=== PATIENT | female | born 1950 | race Caucasian/White ===

== ENCOUNTER 2023-10-17 11:28 | Outpatient (CLI) | payer MEDICARE, SELFPAY ==
[2023-10-17 11:58] LABS: Basophils Absolute Auto 0.1 K/mm3 (0.0-0.1); Basophils Percent Auto 0.7 % (0.2-1.2); Eosinophils Absolute Auto 0.2 K/mm3 (0-0.3); Eosinophils Percent Auto 3.4 % (0-4.4); Hematocrit 40.7 % (37.0-47.0); Hemoglobin 13.3 g/dL (12.0-15.0); Immature Granulocyte Absolute 0.02 K/mm3 (0.00-0.031); Immature Granulocyte Percent A 0.3 % (0-0.5); Lymphocytes Absolute Auto 1.09 K/mm3 (0.9-3.2); Lymphocytes Percent Auto 16.3 % (18.3-44.2); Mean Corpuscular HGB Conc 32.7 g/dl (32-36); Mean Corpuscular Hemoglobin 29.1 pg (26-34); Mean Corpuscular Volume 89.1 fl (80-100); Mean Platelet Volume 8.8 fl (7.4-10.4); Monocytes Absolute Auto 0.6 K/mm3 (0.1-0.6); Monocytes Percent Auto 9.6 % (2.6-8.5); Neutrophils Absolute Auto 4.7 K/mm3 (1.3-6.7); Neutrophils Percent Auto 69.7 % (45.5-73.1); Platelet Count Result 321 k/mm3 (150-375); Red Blood Count 4.57 M/mm3 (4.2-5.4); Red Cell Distribution Width 13.3 % (11.5-14.5); White Blood Count 6.7 K/mm3 (4.5-10.0)
[2023-10-19 03:49] LABS: CA 15-3 20 U/mL (<32)
== END 2023-10-17 11:29 | disposition home or self-care (01) ==
PROVIDERS: PCP Family Medicine Sports Medicine; Visit Provider Internal Medicine Hematology & Oncology
DX: C50.912 Malignant neoplasm of unspecified site of left female breast (principal)
CPT/HCPCS: 36415; 85025; 86300

== ENCOUNTER 2024-04-23 10:05 | Outpatient (CLI) | payer MEDICARE, SELFPAY ==
[2024-04-23 10:28] LABS: Basophils Absolute Auto 0.1 K/mm3 (0.0-0.1); Basophils Percent Auto 0.8 % (0.2-1.2); Eosinophils Absolute Auto 0.2 K/mm3 (0-0.3); Eosinophils Percent Auto 2.7 % (0-4.4); Hematocrit 36.6 % (37.0-47.0); Hemoglobin 11.9 g/dL (12.0-15.0); Immature Granulocyte Absolute 0.03 K/mm3 (0.00-0.031); Immature Granulocyte Percent A 0.4 % (0-0.5); Lymphocytes Absolute Auto 0.98 K/mm3 (0.9-3.2); Lymphocytes Percent Auto 12.7 % (18.3-44.2); Mean Corpuscular HGB Conc 32.5 g/dl (32-36); Mean Corpuscular Hemoglobin 30.1 pg (26-34); Mean Corpuscular Volume 92.7 fl (80-100); Mean Platelet Volume 8.8 fl (7.4-10.4); Monocytes Absolute Auto 0.7 K/mm3 (0.1-0.6); Monocytes Percent Auto 8.6 % (2.6-8.5); Neutrophils Absolute Auto 5.8 K/mm3 (1.3-6.7); Neutrophils Percent Auto 74.8 % (45.5-73.1); Platelet Count Result 266 k/mm3 (150-375); Red Blood Count 3.95 M/mm3 (4.2-5.4); Red Cell Distribution Width 13.8 % (11.5-14.5); White Blood Count 7.7 K/mm3 (4.5-10.0)
[2024-04-24 11:37] LABS: CA 15-3 16 U/mL (<32)
== END 2024-04-23 10:06 | disposition home or self-care (01) ==
PROVIDERS: PCP Family Medicine Sports Medicine; Visit Provider Internal Medicine Hematology & Oncology
DX: C50.912 Malignant neoplasm of unspecified site of left female breast (principal)
CPT/HCPCS: 36415; 85025; 86300

== ENCOUNTER 2024-10-21 14:30 | Outpatient (CLI) | payer MEDICARE, SELFPAY ==
--- OUTSIDE RECORDS SUMMARY | 2024-10-21 14:33 | XMS_ITS | Clinical Summary ---
Author Organization [facility] [place] Address [address] [place] [address] Phone Care Team Providers Care Rest Room Maid Name Role Phone Devan Mckeon MD Primary Care Provider [phone] Allergies Active Allergy Reactions Criticality Noted Date Comments Adhesive Tape-Silicones Itching Low 02/03/2016 Morphine Itching,Swelling High 04/10/2016 Sulfa (Sulfonamide Antibiotics) Swelling Low 09/0 06/2015 Tapentadol Itching,Rash Medium 02/03/2016 Medications lisinopril (PRINIVIL) 20 mg tablet 6 Active omeprazole (PriLOSEC) 40 mg Capsule, Delayed Release(E.C.) Take 40 mg by mouth daily. Active metoprolol succinate (TOPROL XL) 50 mg Extended Release 24 hour tablet TAKE 1 TABLET BY MOUTH ONCE DAILY 1 9 Active ergocalciferol (Vitamin D2) 50,000 unit capsuleIndications :Malignant neoplasm of overlapping sites of both breasts in female, estrogen receptor positive (CMS/HCC),Use of aromatase inhibitors,Vitamin D insufficiency Take 1 Capsule (50,000 Units) by mouth every 7 days. 12 Capsule 4 0 Active multivitamin (DAILY-CLOVIS) tabletIndications: Malignant neoplasm of overlapping sites of both breasts in female, estrogen receptor positive (CMS/HCC) Take 1 Tablet by mouth daily. 1 0 Active L. gasseri-B. bifidum-B longum (Smappo) 1.5 billion cell Capsule Take 1 Capsule by mouth. 6 Active amLODIPine (NORVASC) 10 mg tabletIndications: Benign essential HTN Take 1 tablet by mouth once daily 90 Tablet 1 Active hydrALAZINE (APRESOLINE) 50 mg tablet Take 50 mg by mouth 3 times daily. 2 Active meloxicam (MOBIC) 7.5 mg tablet Take 7.5 mg by mouth 2 times daily. 2 Active pantoprazole (PROTONIX) 40 mg Tablet, Delayed Release (E.C.) Take 40 mg by mouth daily. 2 Active levothyroxine 50 mcg tablet Take 50 mcg by mouth daily. 3 Active exemestane (AROMASIN) 25 mg tabletIndications: Use of aromatase inhibitors,Post-me nopausal,Recurrent breast cancer, left (CMS/HCC) TAKE 1 TABLET BY MOUTH ONCE DAILY AFTER BREAKFAST 90 Tablet 2 4 Active aspirin (WANDA CHEWABLE) 81 mg Tablet, Chewable Take 81 mg by mouth 2 times daily. 4 Active atorvastatin (LIPITOR) 20 mg tablet Take 20 mg by mouth daily. 3 Active gabapentin (NEURONTIN) 300 mg capsule Take 300 mg by mouth 3 times daily. 4 Active ondansetron (ZOFRAN) 4 mg Tablet take 1 tablet by mouth every 8 hours as needed for nausea Active zolpidem (AMBIEN) 5 mg tablet Take 5 mg by mouth nightly as needed. Active Active Problems Patient Care Coordination No te Formatting of this note migh t be different from the original. 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 2021 Bilateral malignant neoplasm of overlapping sites of breast in female 02/09/2016 Overview (10/19/2016): RIGHT, UOQ Stage: Clinical T1 N0; pT1a N0 Date of diagnosis: 02/03/16 Diagnosis: right 0.1 cm grade I IDC 0/2 LN ER(+) ID(+) HER2 (-) Ki-67 - 10.9% LEFT, UIQ Stage: Clinical T1 N0; pT2 N0 Date of diagnosis: Diagnosis: left 2.2 cm Grade I IDC 0/2 LN ER(+) ID(+) HER2 (-) Ki-67 - 15.8% Oncotype-Dx score: 3 Medical oncologist- Raj Endocrine: 2.5mg Letrozole BREAST CANCER TREATMENT SUMMARY AND SURVIVORSHIP PLAN Patient name: Aline Grant Patient Patient : 1950 CARE TEAM Medical oncologist: Dr Neeraj Anthony Surgeon: Dr Maya Cornejo Primary care physician: Dr Devan Mckeon SALES SERVICE COORDINATOR: Dr Gunjan Rodriguez TREATMENT SUMMARY Diagnosis date: 02/03/2016 Cancer type/location/histology subtype: 01/03/2016: A bilateral screening mammogram showed an asymmetry in the posterior left breast. 01/20/16: A diagnostic mammogram also showed a suspicious mass with ill-defined margins in the upper, posterior left breast. An additional mass in the outer, posterior right breast was also seen. 02/03/2016: A left breast ultrasound (US) was performed confirming the ill-defined mass, however no abnormal left axillary lymph nodes. A right breast US also confirmed An ill-defined 4 mm mass at the 11:00 position of the right breast. 02/03/16: A bilateral US- guided core biopsy was performed revealing an invasive ductal carcinoma (IDC) in the right and left breast Right Breast Mass: Left Breast Mass: Estrogen: POSITIVE-01/09 Estrogen: POSITIVE-01/09 Progesterone: POSITIVE-01/09 Progesterone: POSITIVE-01/09 Cju5Cuw: NEGATIVE Svo4Vtu: NEGATIVE Ki-67: 10.9% Ki-67: 15.8% 02/14/16: MRI demonstrated no additional abnormality or enlarged lymph nodes visualized. Surgery: [x] Yes [] No Surgery date: 04/10/16 Surgical procedures/location/findings: A bilateral mastectomy without reconstruction was performed by Dr Maya Cornejo. The left mastectomy showed invasive ductal carcinoma measuring 2.2 cm. The right mastectomy showed invasive ductal carcinoma measuring 0.4 cm. All margins were negative. Lymph nodes removed: [x] Yes [] No . 2 sampled left axillary sentinel lymph nodes were negative. TNM: Final pathologic stage [id number] -. 2 sampled right axillary lymph nodes were negative for malignancy. TNM: Final pathologic stage TIN0M0 *T1 (includes T1a, T1b, and T1c): Tumor is 2 cm (3/4 of an inch) or less across Oncotype results if performed: Oncotype-Dx score: 3 -Low risk of recurrence. -No chemo indicated Oncotype DX test results assign a Recurrence Score -- a number between 0 and 100 -- to the early-stage breast cancer or DCIS. You and your doctor can use the following ranges to interpret your results for early-stage invasive cancer: Recurrence Score lower than 18: The cancer has a low risk of recurrence. The benefit of chemotherapy is likely to be small and will not outweigh the risks of side effects. Recurrence Score of 18 up to and including 30: The cancer has an intermediate risk of recurrence. It s unclear whether the benefits of chemotherapy outweigh the risks of side effects. Recurrence Score greater than or equal to 31: The cancer has a high risk of recurrence, and the benefits of chemotherapy are likely to be greater than the risks of side effects. Need for ongoing (adjuvant) treatment for cancer: Yes [x] No[] Additional treatment name: 2.5mg Letrozole (Femera) - take one tablet by mouth daily Plan duration: 5 years Possible side effects: Arthralgias [x] Hot flashes/night sweats [x] Increased bone loss [x] vaginal dryness [x] slight increased risk of DVT/Blood clot [] Slight increased risk of uterine cancer [] increased cholesterol [x] Bone health- Vitamin D 1000 units a day, calcium rich diet (milk, cheese, yogurt, leafy greens), if lactose intolerant, recommend Calcium 600mg daily, weight bearing exercises such as walking or aerobics encouraged. Bone density exams every two years. Magnesium for hot flashes- 500mg twice a day, reduce caffeine intake, exercise regularly, cotton clothing and bed linens, sleep with fan in room Vaginal dryness- can try over the counter products such as [place] or Replens. Daily application of coconut oil or olive oil. Try and avoid estrogen based vaginal creams such as Estrace. For lack of libido- physical exercise recommended. Can refer to [facility] for counseling and possible acupuncture. SCHEDULE OF CLINIC VISITS, CANCER SURVEILLANCE AND OTHER RECOMMENDED RELATED TESTS MEDICAL ONCOLOGIST -Every 3-4 mos for the first 3 years -Every 6-12 mos years 4 and 5 -Then yearly. *Physical exam/lab work every 3-6 months the first 3 years and then every 6 months year 4/5 and then yearly. Mammogram yearly. A baseline bone density study should be performed on all postmenopausal women prior to starting Arimidex/Femara/or Aromasin. It should be repeated every 1-to 2 years as directed by your physician. Other testing as indicated. SURGEON -Every 6 mos for the first year and then yearly. *Physical exam and other tests as indicated on each visit PRIMARY CARE PHYSICIAN -Continue your yearly visit *Physical exam and other tests as indicated on each visit [employer] ADVISOR -Continue your yearly visit. *Physical exam and other tests (Pap test) as indicated on each visit. Possible late and/or usp affects that someone with this type of cancer and treatment may experience: [] Neuropathy [x] Lymphedema [x] Fatigue [x] Osteoporosis [x] Menopausal symptoms [] Lung Disease [] Breast Pain [] Sexual dysfunction [] Heart Disease [] Leukemia Cancer survivors may experience issues with the areas listed below. If you have any concerns in these or other areas please speak with your doctors or nurses to find out how you can get help with them. [] Emotional and mental health [] Physical functioning [] Memory or concentration loss [] Fatigue [] Insurance issues [] Parenting [] Spiritual issues [] Weight changes [] School/work [] Fertility [] Stopping smoking [] Financial advice or assistance [] Sexual functioning [] Other A number of lifestyle/behaviors can affect one's ongoing health, including the risk for the cancer coming back or developing another cancer. Discuss these recommendations with your doctor and nurses. [] Tobacco use/cessation [] Alcohol use [] Weight management (loss/gain) [] Diet [] Calcium and vitamin D [] Regular daily weight bearing exercise [] Sunscreen use [] Vaccines [] Lung cancer screening [] Routine dental care [] Breast cancer screening [] Breast self exam [] Well woman exam [] Colonoscopy [] Monitoring of blood pressure, cholesterol, and blood glucose CALL YOUR DOCTOR RECOMMENDATIONS Call for any breast changes, new lumps or areas of concern, swelling to arm where lymph nodes were removed, new pain that persists despite OTC medications, or any problems with your endocrine therapy. PLAN Lifestyle modifications could have a modest impact on risk reduction as well. Recommend a healthy diet including low fat, high fiber foods, low sodium and low cholesterol foods. Mediterranean diet and anti-inflammatory diet recommended and info provided. Recommend an exercise regimen of approximately 5-6 days a week and maintaining healthy weight. Goal is to achieve 150 minutes of exercise per week. We spent time discussing that those changes could result in weight loss which is preventive and also good for overall health. REFERRALS [x] [facility] [] [facility] [] Other (Specify): ADDITIONAL RESOURCES Patients may have many questions and concerns after their cancer treatment ends. A list of local resources as provided below to assist you. [facility] cancer information center: [place] [employer] Society (ACS): www.acs.org National Cancer [place] (NCI): www.cancer.gov [place] Society of clinical oncology (ASCO): www.cancer.net K[employer]: www.Or[employer] Innovations.org [employer]: hovelstay.Systems Integration Radiation therapy: www.rtanswers.org Patient signature: Akin M.Angel/MOLD CUTTING MACHINE OPERATOR/RN signature: Eden Brooke RN BSN Date delivered on: 08/18/2016 Surgeon: Clemente Surgery: 04/10/16 bilateral TM/SLN Medical Oncologist: Chemotherapy: Radiation: none Hormonal therapy: Breast mass, left 02/03/2016 Overview (02/03/2016): For core biopsy Resolved Problems Problem Noted Date Diagnosed Date Resolved Date Abnormal mammogram 01/24/2016 2 Encounters Date Type Department Care Team Description 08/07/2024 1:30 PM HANDKERCHIEF PRESSER Office Visit [facility] [address] [place] [phone] Maya Cornejo MD History of breast cancer (Primary Dx); Mass of left breast, unspecified quadrant 08/07/2024 11:11 AM HANDKERCHIEF PRESSER - 08/07/2024 11:59 PM HANDKERCHIEF PRESSER Hospital Encounter [facility] [address] [place] [phone] Maya Cornejo MD Discharge Disposition: Home or Self Care 07/31/2024 Orders Only [facility] [place] [address] [place] [phone] Maya Cornejo MD Mass of left breast, unspecified quadrant (Primary Dx); Disorder of breast, unspecified from Last 3 Months Immunizations Immunization Administration Dates Next Due Influenza Seasonal Unspecified Formulation IM Family History Medical History Relation Name Comments Lung Cancer Father smoker Breast Cancer Paternal Aunt 30-40 Colon Cancer Paternal Aunt Breast Cancer Paternal Grandmother deceas ed Ovarian Cancer Neg Hx Uterine Cancer Neg Hx Relation Name Status Comments Father Paternal Aunt Paternal Grandmother Social History Tobacco Use Types Packs/Day Years Used Date Smoking Tobacco: Never Smokeless Tobacco: Never Alcohol Use Standard Drinks/Week Comments No 0 (1 standard drink = 0.6 oz pur e alcohol) Feeling Safe Answer Date Recorded Within the last year, have y ou been afraid of your partner or ex-partner? No 10/25/2023 Emotionally Abused Not on file 10/25/2023 Within the last year, have y ou been kicked, hit, slapped, or otherwise physically hurt by your partner or ex-partner? No 10/25/2023 Sexually Abused Not on file 10/25/2023 Feeling Safe Answer Date Recorded Do you worry about feeling s afe and happy with the people in your life? No 08/07/2024 Comments No Sex and Gender Information Value Date Recorded Sex Assigned at Not on file Legal Sex Female 2:28 PM CDT Gender Identity Not on file Sexual Orientation Not on file Last Filed Vital Signs Vital Sign Reading Time Taken Comments Blood Pressure 124/69 08/07/2024 1:57 PM HANDKERCHIEF PRESSER Pulse 67 08/07/2024 1:57 PM HANDKERCHIEF PRESSER Temperature 36.7 C (98 F) 04/30/2024 9:14 AM HANDKERCHIEF PRESSER Respiratory Rate 17 04/30/2024 9:14 AM HANDKERCHIEF PRESSER Oxygen Saturation 95% 04/30/2024 9:14 AM HANDKERCHIEF PRESSER Inhaled Oxygen Concentration - - Weight 91.6 kg (202 lb) 08/07/2024 1:57 PM HANDKERCHIEF PRESSER Height 166.4 cm (5' 5.5 ) 08/07/2024 1:57 PM HANDKERCHIEF PRESSER Body Mass Index 33.1 08/07/2024 1:57 PM HANDKERCHIEF PRESSER Plan of Treatment Upcoming Encounters Date Type Department Care Team (Late st Contact Info) Description 10/29/2024 11:30 AM CDT Office Visit [facility] - [place] [address] [facility] [address] [place] [address] Neeraj Justice MD [address] [facility] [address] [place] [address] Health Maintenance Due Date Last Done Comments DTAP/TDAP/TD VACCINES (1 - Tdap) 1970 FIT-DNA Q 3 years 1996 FIT/FOBT Q 1 year 1996 Flex Sig/CT Colonography Q 5 years 1996 ZOSTER VACCINE (1 of 2) 2001 COVID-19 Vaccine ( - 2023-2 5 season) 2024 05/05/2021, 08/06/2020, 07/09/2020 RSV VACCINE (60+ or ) (1 - 1-dose 75+ series) 2026 OSTEOPOROSIS SCREENING 10/25/2027 3, 10/24/2022, 08/18/2016 COLORECTAL SCREENING 11/11/2030 11/11/2020 Colorectal Cancer Screening 11/11/2030 INFLUENZA VACCINE Completed 02/12/2024, , 03/20/2022, Additional history exists PNEUMOCOCCAL VACCINE 50+ YEARS Completed 02/12/2024 , 05/31/2020 Procedures Procedure Name Priority Date/Time Associated Diagnosis Comments MAMMO BREAST US LEFT LTD Routine 08/07/2024 12:17 PM HANDKERCHIEF PRESSER Mass of left breast, unspecified quadrant XR DEXA BONE DENSITY AXIAL 1 OR MORE SITES Routine 10/24/2022 9:59 AM CDT Use of aromatase inhibitors Post-menopausal Screening for osteoporosis from Last 3 Months or Most Recently Relevant to Health Maintenance Results * MAMMO BREAST US LEFT LTD (08/07/2024 12:17 PM HANDKERCHIEF PRESSER) Anatomical Region Laterality Modality Left Ultrasound 08/07/2024 12:1 7 PM HANDKERCHIEF PRESSER Impressions 08/07/2024 12:22 PM HANDKERCHIEF PRESSER IMPRESSION: Unremarkable focused ultrasound BI-RADS 1: Negative Routine follow-up. INCIDENTAL FINDINGS: None. DICTATION LOCATION: Location [address] [place] [address] 08/07/2024 12:22 PM HANDKERCHIEF PRESSER Focused ultrasound left breast INDICATION: Possible lump. Focused ultrasound was made through the area of clinical concern. No suspicious solid or cystic mass is identified. Axillary nodes are seen that have normal appearance. us Maya Cornejo MD MAMMO ORDERABLES Final Result * XR DEXA BONE DENSITY AXIAL 1 OR MORE SITES (10/24/2022 9:59 AM CDT) Anatomical Region Laterality Modality Computed Radiogr aphy 10/24/2022 10:0 0 AM CDT Impressions 10/24/2022 10:12 AM CDT IMPRESSION: This is a summary page. Please refer to the complete detailed report found in the Imaging Section of the [facility] EMR. Osteopenia. Lumbar Spine: t-Score: -1.3 Left Femoral Neck: t-Score: -1.1 Left Total Femur: t-Score: -1.1 Right Femoral Neck: t-Score: -0.9 Right Total Femur: t-Score: -1.0 Statistical change: Significant decrease of 5.3 % in Lumbar spine BMD since 2017. FRAX FRACTURE RISK ASSESSMENT: (Only valid Between 40-89 Years Of Age) Risk factors: None. 10 Year Probability Of Fracture Major Osteoporotic: 8.4 % Hip: 0.9 % Comparison population: [place], Race: White A major osteoporotic fracture is defined as a fracture of the spine, forearm, hip or shoulder. Definitions: Normal: T-score above -1.0 Osteopenia T-score less than -1.0 and above -2.5 Osteoporosis: T-score <= -2.5 Follow-up Recommendations: Patients without high risk factors for osteoporosis T-score -1.0 to -1.5 - Consider repeat BMD in 5-10 years T-score -1.5 to - 2.0 - Consider repeat BMD in 3-5 years T-score -2.0 to - 2.5 - Consider repeat BMD every 2 years Patients on treatment for osteoporosis 1-2 years after initiation of treatment and every 2 years thereafter [address] Dr[address] Dallas Zimmerman MD DICTATION LOCATION: 10/24/2022 10:12 AM CDT EXAMINATION: BONE DENSITY STUDY (DXA) DATE: 10/24/2022 9:59 AM HISTORY: 72 years Female. Postmenopausal. Use of aromatase inhibitors. PROCEDURE: Planar images of the lumbar spine and hip(s) using a [employer] DEXA scanner for bone mineral density determination (BMD). Prior bone density: 08/18/2016 FINDINGS: Lumbar Spine (L1-L2): t-Score: -1.3 1.007 g/sq cm Prior: 1.063 g/sq cm Left Femoral Neck: t-Score: -1.1 0.891 g/sq cm Prior: 0.896 g/sq cm Left Total Femur: t-Score: -1.1 Right Femoral Neck: t-Score: -0.9 0.910 g/sq cm Prior: 0.922 g/sq cm Right Total Femur: t-Score: -1.0 INCIDENTAL FINDINGS: L3-L4 excluded bcause of statistical variation.. Procedure Note Dallas Zimmerman MD - 10/24/2022 EXAMINATION: BONE DENSITY STUDY (DXA) DATE: 10/24/2022 9:59 AM HISTORY: 72 years Female. Postmenopausal. Use of aromatase inhibitors. PROCEDURE: Planar images of the lumbar spine and hip(s) using a [employer] DEXA scanner for bone mineral density determination (BMD). Prior bone density: 08/18/2016 FINDINGS: Lumbar Spine (L1-L2): t-Score: -1.3 1.007 g/sq cm Prior: 1.063 g/sq cm Left Femoral Neck: t-Score: -1.1 0.891 g/sq cm Prior: 0.896 g/sq cm Left Total Femur: t-Score: -1.1 Right Femoral Neck: t-Score: -0.9 0.910 g/sq cm Prior: 0.922 g/sq cm Right Total Femur: t-Score: -1.0 INCIDENTAL FINDINGS: L3-L4 excluded bcause of statistical variation.. IMPRESSION: This is a summary page. Please refer to the complete detailed report found in the Imaging Section of the [facility] EMR. Osteopenia. Lumbar Spine: t-Score: -1.3 Left Femoral Neck: t-Score: -1.1 Left Total Femur: t-Score: -1.1 Right Femoral Neck: t-Score: -0.9 Right Total Femur: t-Score: -1.0 Statistical change: Significant decrease of 5.3 % in Lumbar spine BMD since 2017. FRAX FRACTURE RISK ASSESSMENT: (Only valid Between 40-89 Years Of Age) Risk factors: None. 10 Year Probability Of Fracture Major Osteoporotic: 8.4 % Hip: 0.9 % Comparison population: [place], Race: White A major osteoporotic fracture is defined as a fracture of the spine, forearm, hip or shoulder. Definitions: Normal: T-score above -1.0 Osteopenia T-score less than -1.0 and above -2.5 Osteoporosis: T-score <= -2.5 Follow-up Recommendations: Patients without high risk factors for osteoporosis T-score -1.0 to -1.5 - Consider repeat BMD in 5-10 years T-score -1.5 to - 2.0 - Consider repeat BMD in 3-5 years T-score -2.0 to - 2.5 - Consider repeat BMD every 2 years Patients on treatment for osteoporosis 1-2 years after initiation of treatment and every 2 years thereafter D[address] by Dr. Dallas Zimmerman MD DICTATION LOCATION: 1 Neeraj Carrington Anthony MD DIAGNOSTIC IMAGING ORDERABLES Final Result from Last 3 Months or Most Recently Relevant to Health Maintenance [place] [address] [place] [id number] Advance Directives For more information, please contact: [phone] * Full Code (Latest Code Status on File) Date Activated Date Inactivated Comments 04/10/2016 1:11 PM 04/11/2016 12:59 PM * Full Code Date Activated Date Inactivated Comments 04/10/2016 7:08 AM 04/10/2016 1:11 PM Care Teams Rest Room Maid Relationship Specialty [place] [address] [address] [place] [phone] PCP - General Family Practice 02/23/16
--- OUTSIDE RECORDS SUMMARY | 2024-10-21 14:33 | XMS_ITS ---
Author Organization [facility] Address [address] [place] [address] Care Team Providers Care Furnace Helper Name Role Phone JanyHawa Edward TABLE GAMES SHIFT MANAGER Primary Care Provider Active Problems Problem Noted Date Diagnosed Date Gastroesophageal reflux disease without esophagi tis 08/15/2024 Diarrhea 08/05/2024 Assessment & Plan (08/05/2024 1:23 PM CLEANING TEAM MEMBER): Chronic diarrhea after meals, 2-3 loose to watery bowel movements per day. In between these episodes has constipation. Differential includes infectious diarrhea versus IBD versus IBS versus overflow diarrhea versus bile salt diarrhea versus pancreatic insufficiency. -We will order labs - CBC, CMP, ESR, CRP, celiac disease panel -We will order stool studies - C diff, stool culture, fecal lactoferrin, Cryptosporidium Giardia, fecal elastase -Schedule colonoscopy -The risks (risks of bleeding, infection, perforation requiring surgery, missed polyps/cancer, dental injury, aspiration pneumonia, anesthesia complications such as drug reaction and cardiopulmonary complications including rare chance of ), benefits, and alternatives of the planned procedure were explained to the patient who understands and consents to having procedure done. Essential hypertension 10/29/2022 Acute duodenitis 10/29/2022 GERD without esophagitis 10/29/2022 History of pancreatitis 10/29/2022 Abdominal pain 09/13/2021 Assessment & Plan (08/05/2024 1:23 PM CLEANING TEAM MEMBER): Chronic GERD, not well-controlled with omeprazole 40 mg p.o. daily which he has been taking for years, continues to have belching after meals. -Continue omeprazole 40 mg p.o. daily -Start famotidine 40 mg p.o. q.h.s. -RECOMMENDATIONS given include: anti-reflux maneuvers, Avoid acidic foods like oranges and tomatoes., avoidance of spicy foods, avoid eating 3-4 hours before bed, elevation of the head of the bed, and weight loss -Schedule EGD -The risks (risks of bleeding, infection, perforation requiring surgery, missed polyps/cancer, dental injury, aspiration pneumonia, anesthesia complications such as drug reaction and cardiopulmonary complications including rare chance of ), benefits, and alternatives of the planned procedure were explained to the patient who understands and consents to having procedure done. Acute pancreatitis 09/09/2021 Overview (09/13/2021): Added automatically from request for surgery [id number] Assessment & Plan (08/05/2024 1:20 PM CLEANING TEAM MEMBER): Has had a cholecystectomy. Patient has had recurrent pancreatitis with a previous ERCP in 2012 and 2016 with a pancreatic sphincterotomy. 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 Patient also had recurrent pancreatitis October 2022. No pancreatitis since then. -We will order MRI of the pancreas -We will order labs - IgG4 -Advised patient to go to the ER for any severe abdominal pain, nausea, or vomiting Bilateral malignant neoplasm of overlapping sites of breast in female 02/09/2016 10/29/2022 Overview (10/29/2022): RIGHT, UOQ Stage: Clinical T1 N0; pT1a N0 Date of diagnosis: 02/03/16 Diagnosis: right 0.1 cm grade I IDC 0/2 LN ER(+) CT(+) HER2 (-) Ki-67 - 10.9% LEFT, UIQ Stage: Clinical T1 N0; pT2 N0 Date of diagnosis: Diagnosis: left 2.2 cm Grade I IDC 0/2 LN ER(+) CT(+) HER2 (-) Ki-67 - 15.8% Oncotype-Dx score: 3 Medical oncologist- Raj Endocrine: 2.5mg Letrozole BREAST CANCER TREATMENT SUMMARY AND SURVIVORSHIP PLAN Patient name: Aline Grant Patient Patient : 1950 CARE TEAM Medical oncologist: Dr Neeraj Anthony Surgeon: Dr Maya Cornejo Primary care physician: Dr Devan Mckeon HEAVY DUTY PRESS OPERATOR: Dr Gunjan Rodriguez TREATMENT SUMMARY Diagnosis date: [...] Right Breast Mass: Left Breast Mass: Estrogen: POSITIVE-8 Estrogen: POSITIVE-01/09 Progesterone: POSITIVE-01/09 Progesterone: POSITIVE-01/09 [id number]: NEGATIVE [id number]: NEGATIVE Ki-67: 10.9% Ki-67: 15.8% 02/14/16: MRI [...] other tests as indicated on each visit NUCLEAR LOGGING ENGINEER -Continue your yearly visit. *Physical exam and other tests (Pap test) as indicated on each visit. Possible late and/or intermission coordinator affects that someone with this type of [...] also good for overall health. REFERRALS [x] [facility] [] [facility] [] Other (Specify): ADDITIONAL RESOURCES Patients may have many questions and concerns after their cancer treatment ends. A list of local resources as provided below to assist you. [facility] cancer information [place]: [place] Cancer Society (ACS): www.acs.org National Cancer [place] (NCI): www.cancer.gov [place] Society of clinical oncology (ASCO): www.cancer.net Komen: www.Molplex.org Livestrong: [employer].ClearDATA Radiation therapy: www.rtanswers.org Patient signature: Akin M.DLokesh/TABLE GAMES SHIFT MANAGER/RN signature: Eden Brooke RN BSN Date delivered on: 08/18/2016 Surgeon: Clemente Surgery: 04/10/16 bilateral TM/SLN Medical Oncologist: Chemotherapy: Radiation: none Hormonal therapy: Current Treatment and Therapy Plans No current plan information found. Past Treatment and Therapy Plans No past plan information found. Lifetime Dose Tracking * Chemical Lifetime Dose Automatic Entry Manual Entr y Fluoro Time 8.6 minutes 8.6 minutes 0 minutes Air kerma at the reference point (Ka,r) 332 mGy 3 32 mGy 0 mGy
--- OUTSIDE RECORDS SUMMARY | 2024-10-21 14:33 | XMS_ITS | Encounter Summary ---
Author Organization [facility] Healthcare Address [address] [place] [address] Care Team Providers Care Geosciences Faculty Member Name Role Phone Devan Mckeon MD Primary Care Provider + Hawa Carmichael NP Primary Care Provider Encounter Details Date Type Department Care Team (Latest Contact Info) Description 08/20/2024 Results Follow-Up [facility] Medical Group Gastroenterology at [address] [place] [address] Kavon Lynn MD [address] [place] [id number] Surgical pathology Social History Tobacco Use Types Packs/Day Years Used Date Smoking Tobacco: Never Smokeless Tobacco: Never Social Connection and Isolation Panel [NHANES] A nswer Date Recorded In a typical week, how many times do you talk on the phone with family, friends, or neighbors? Once a week 09/13/2021 How often do you get together with friends or re latives? Never 09/13/2021 How often do you attend religion or lutheran serv ices? Never 09/13/2021 Do you belong to any clubs o r organizations such as religion groups, unions, fraternal or athletic groups, or school groups? No 09/13/2021 How often do you attend meet ings of the clubs or organizations you belong to? Never 09/13/2021 Are you , , di vorced, , never , or living with a partner? 09/13/2021 AUDIT-C Answer Date Recorded Q1: How often do you have a drink containing alcohol? Never 08/19/2024 Q2: How many drinks containi ng alcohol do you have on a typical day when you are drinking? Patient does not drink Q3: How often do you have si x or more drinks on one occasion? Never 08/19/2024 Overall Financial Resource Strain (CARDIA) Answe r Date Recorded How hard is it for you to pa y for the very basics like food, housing, medical care, and heating? Not hard at all 09/13/2021 PRAPARE - Transportation Answer Date Re corded In the past 12 months, has l ack of transportation kept you from medical appointments or from getting medications? No 09/02 In the past 12 months, has l ack of transportation kept you from meetings, work, or from getting things needed for daily living? No 09/13/2021 Personal Safety Answer Date Recorded Have you ever been in or are you currently in a harmful physical or emotional relationship or is someone making you feel afraid or unsafe? Denies 08/19/2024 Comments No Sex and Gender Information Value Date Recorded Sex Assigned at Not on file Legal Sex Female 2:51 AM HVAC RESIDENTIAL SERVICE TECHNICIAN Gender Identity Not on file Sexual Orientation Not on file documented as of this encounter Plan of Treatment Not on file documented as of this encounter Visit Diagnoses Not on filedocumented in this encounter Care Teams Geosciences Faculty Member Relationship Specialty Start Date End Date Devan Mckeon MD [address] [place] [address] PCP - General Family Medicine 09/09/21 08/24/24 Hawa Carmichael NP [address] [place] [address] PCP - General Family Medicine 08/25/24 documented as of this encounter
--- OUTSIDE RECORDS SUMMARY | 2024-10-21 14:33 | XMS_ITS | Encounter Summary ---
Author Organization [facility] Health Address [address] [place] [address] Care Team Providers Care Jointer Machine Operator Name Role Phone Devan Mckeon MD Primary Care Provider [phone] Hawa Carmichael APRN-[facility] Primary Care Prov ider Reason for Referral * Consultation (Routine) - Authorized Specialty Diagnoses / Procedures Referred By Contac t Referred To Contact Neurology Diagnoses Vertebral artery stenosis, unspecified laterality Nesha Monsalve MD [address] [place] [address] Phone: tel: fax: López Ryan MD [address] [place] [address] [place] [address] Phone: tel: fax: Referral ID Status Reason Start Date Expiration Date Visits Requested Visits Authorized [id number] Authorized Specialty Services Required 4 04/22/2025 6 6 R SERVICES TEAM LEADER Encounter Details Date Type Department Care Team (Late st Contact Info) Description 04/22/2024 Transcribe Orders [facility] - Centralized Scheduling [address] [place] [id number] Nesha Monsalve MD [address] [place] [address] [id number] Vertebral artery stenosis, unspecified laterality Social History Tobacco Use Types Packs/Day Years Used Date Smoking Tobacco: Never Smokeless Tobacco: Never Alcohol Use Standard Drinks/Week Comments Never 0 (1 standard drink = 0.6 oz pur e alcohol) AUDIT-C Answer Date Recorded Q1: How often do you have a drink containing alcohol? Never 06/25/2023 Q2: How many drinks containi ng alcohol do you have on a typical day when you are drinking? Patient does not drink Q3: How often do you have si x or more drinks on one occasion? Never 06/25/2023 Overall Financial Resource Strain (CARDIA) Answe r Date Recorded How hard is it for you to pa y for the very basics like food, housing, medical care, and heating? Not hard at all 06/25/2023 PHQ-2 Answer Date Recorded Patient Health Questionnaire-2 Score 0 08/13/2023 [facility] - Occupational Stress Questionnaire Answer Date Recorded Do you feel stress - tense, restless, nervous, or anxious, or unable to sleep at night because your mind is troubled all the time - these days? Not at all 06/25/2023 Hunger Vital Sign Answer Date Recorded Within the past 12 months, y ou worried that your food would run out before you got the money to buy more. Never true 06/25/19 24 Within the past 12 months, t he food you bought just didn't last and you didn't have money to get more. Never true 06/25/2023 PRAPARE - Transportation Answer Date Re corded In the past 12 months, has l ack of transportation kept you from medical appointments or from getting medications? No 06/05 In the past 12 months, has l ack of transportation kept you from meetings, work, or from getting things needed for daily living? No 06/25/2023 Housing Stability Vital Sign Answer Hroacio e Recorded In the last 12 months, was t here a time when you were not able to pay the mortgage or rent on time? No 06/25/2023 In the last 12 months, how many places have you lived? 1 06/25/2023 In the last 12 months, was t here a time when you did not have a steady place to sleep or slept in a fci (including now)? No 06/25/2023 Education Answer Date Recorded What is the highest level of school you have completed or the highest degree you have received? Associate degree: academic program 06/25/2023 Comments Unknown Sex and Gender Information Value Date Recorded Sex Assigned at Not on file Legal Sex Female 6:00 AM DONOR SERVICES TEAM LEADER Gender Identity Not on file Sexual Orientation Not on file documented as of this encounter Functional Status * Is person deaf or have serious hearing difficulty? Answer Date of Assessment Author No 06/28/2023 11:38 AM Blanche Márquez RN * Is person blind or have serious difficulty seeing? Answer Date of Assessment Author No 06/28/2023 11:38 AM Blanche Márquez RN * Does person have serious difficulty walking/climbing stairs? Answer Date of Assessment Author No 06/28/2023 11:38 AM Blanche Márquez RN * Does person have difficulty dressing/bathing? Answer Date of Assessment Author No 06/28/2023 11:38 AM Blanche Márquez RN * Does person have difficulty doing errands alone? Answer Date of Assessment Author No 06/28/2023 11:38 AM Blanche Márquez RN documented as of this encounter Mental Status * Does person have difficulty concentrating/remembering/making decisions? Answer Entry Date Author No 06/28/2023 11:38 AM Blanche Márquez RN documented in this encounter Plan of Treatment Scheduled Referrals Name Type Priority Associated Diagnoses Orde r Schedule AMB REFERRAL TO NEUROLOGY Outpatient Referral Routine Vertebral artery stenosis, unspecified laterality 1 Occurrences starting 04/22/2024 until 04/22/2025 documented as of this encounter Visit Diagnoses Diagnosis Vertebral artery stenosis, unspecified laterality- Primary documented in this encounter Care Teams Jointer Machine Operator Relationship Specialty Start Date End Date Devan Mckeon MD [address] [address] PCP - General Family Medicine 06/25/23 07/30/24 Hawa Carmichael, FINISHED HARDWARE ERECTOR-TIRE RETREADER [address] [place] [address] PCP - General Nurse Practitioner 07/31/24 documented as of this encounter
--- OUTSIDE RECORDS SUMMARY | 2024-10-21 14:33 | XMS_ITS | Clinical Summary ---
Author Organization [facility] Address [address] [place] [address] Care Team Providers Care Car Dispatcher Name Role Phone Hawa Carmichael POLITICAL THEORY PROFESSOR-OFFICE MACHINE SERVICER APPRENTICE Primary Care Prov ider Source Comments [facility]non-owned Affiliates and Associated Physician Practices is amultiple site organization consisting of ambulatory clinics and hospital sitesin [place], [place] and [place]. This disclosure is being madepursuant to the Care Everywhere program and may not contain all informatio navailable regarding this patient. Last updated 18.[facility] Allergies Active Allergy Reactions Criticality Noted Date Comments Contrast-Iodinated Agents Fo r Ct/Other Itching,Vomiting Medium 06/25/2023 Morphine Unknown High 06/25/2023 Skin Adhesives Rash Medium 06/25/2023 Sulfacetamide Itching,Vomiting Low 06/25/2023 Medications * Be aware that medications may not be up to date on this document. Alwaysverify current medications with the patient. metoprolol succinate XL 24hr (Toprol XL) 50 MG tablet 1 (one) tablet Activ e levothyroxine (Synthroid) 50 MCG tablet Take 1 (one) tablet by mouth every morning 3 Active fluticasone propionate (Flonase) 50 MCG/ACT nasal spray [place] 2 (two) sprays into the nose once daily as needed 3 Active exemestane (Aromasin) 25 MG tablet Take 1 (one) tablet by mouth once daily after breakfast Active acetaminophen (Tylenol) 500 MG tablet Take 2 (two) tablets by mouth every 8 hours Maximum allowable Acetaminophen amount = 4 Grams (4000 mg) / 24 hours. Active pantoprazole EC (Protonix) 40 MG tablet Take 1 (one) tablet by mouth once daily Active amLODIPine (Norvasc) 10 MG tablet Take 1 (one) tablet by mouth once daily Active lisinopril (Prinivil; Zestril) 40 MG tablet Take 1 (one) tablet by mouth once daily Active aspirin EC (Ecotrin) 325 MG tablet Take 1 (one) tablet by mouth once daily Active famotidine (Pepcid) 40 MG tablet Take 1 (one) tablet by mouth once daily Active hydrALAZINE (Apresoline) 50 MG tablet Take 1 (one) tablet by mouth 4 times daily Active zolpidem (Ambien) 5 MG tablet Take 1 (one) tablet by mouth nightly as needed for Insomnia Active rosuvastatin (Crestor) 5 MG tablet Take 1 (one) tablet by mouth once daily Active gabapentin (Neurontin) 300 MG capsule Take 1 (one) capsule by mouth at bedtime Active Active Problems Problem Noted Date Diagnosed Date Closed fracture of left femu r, unspecified fracture morphology, unspecified portion of femur, initial encounter 06/25/2023 Encounters Date Type Department Care Team Description 10/03/2024 Telephone [facility] [address] [place] [address] Oz Shepherd MD Results 09/30/2024 Telephone [facility] - Neurology [address] [place] [phone] Barrett Murphy MD Results 09/18/2024 Telephone [facility] - Neurology [address] [place] [phone] Barrett Murphy MD General 08/13/2024 10:00 AM CDT Office Visit [facility] - Neurology [address] [place] [phone] Nesha Monsalve MD Linares, Guillermo, MD Vertebral artery stenosis, unspecified laterality (Primary Dx) 08/13/2024 Travel from Last 3 Months Family History Medical History Relation Name Comments CAD (Coronary Artery Disease) Brother Relation Name Status Comments Brother Social History Tobacco Use Types Packs/Day Years [...] Recorded Patient Health Questionnaire-2 Score 0 08/13/2023 [facility] Occup[facility] ional [facility] - Occupational Stress [...] No 06/25/2023 Housing Stability Vital Sign Answer Horacio e Recorded In the last 12 months, [...] place to sleep or slept in a senior living (including now)? No 06/25/2023 Education Answer Date Recorded What is the highest level of school you have completed or the highest degree you have received? Associate degree: academic program 06/25/2023 Comments Unknown Sex and Gender Information Value Date Recorded Sex Assigned at Not on file Legal Sex Female 6:00 AM FISHING LINE WINDING MACHINE OPERATOR Gender Identity Not on file Sexual Orientation Not on file Last Filed Vital Signs Vital Sign Reading Time Taken Comments Blood Pressure 122/75 08/13/2024 9:43 AM CDT Pulse 65 08/13/2024 9:43 AM CDT Temperature 36.9 C (98.4 F) 07/02/2023 4:02 PM FISHING LINE WINDING MACHINE OPERATOR Respiratory Rate 14 08/13/2024 9:43 AM CDT Oxygen Saturation 98% 07/02/2023 4:02 PM FISHING LINE WINDING MACHINE OPERATOR Inhaled Oxygen Concentration - - Weight 93 kg (205 lb) 08/13/2024 9:43 AM CDT Height 166.4 cm (5' 5.5 ) 08/13/2024 9:43 AM CDT Body Mass Index 33.59 08/13/2024 9:43 AM CDT Plan of Treatment Health Maintenance Due Date Last Done Comments COLOGUARD (AGES 45-75) - COLON CA SCREENING [address] COLONOGRAPHY - COLON CA SCREENING 1950 FIT - COLON CA SCREENING 1950 FLEX SIG - COLON CA SCREENING 1950 HEPATITIS C SCREENING 05/27/1969 DTAP/TDAP/TD VACCINES (1 - Tdap) 1970 PNEUMOCOCCAL VACCINE 50+ (1 of 1 - PCV) 2001 ZOSTER VACCINE (1 of 2) 2001 MAMMOGRAM 01/19/2018 01/20/2016 COVID-19 VACCINE ( season) 2024 05/05/2021, 08/06/2020, 07/09/2020 DEPRESSION SCREENING 06/04/2024 06/25/2023 MEDICARE AWV CALENDAR YEAR 2024 Respiratory Syncytial Virus (RSV) Vaccine Pt: or over 60 yrs (1 - 1-dose 75+ series) 2026 COLONOSCOPY - COLON CA SCREENING 11/11/2030 11/11/2020 Colorectal Cancer Screening 11/11/2030 BONE DENSITY TESTING Completed 10/24/2022, 08/19/19 INFLUENZA VACCINE Completed 02/12/2024, , 03/20/2022, Additional history exists HEPATITIS B VACCINE Aged Out No longe r eligible based on patient's age to complete this topic HIB VACCINE Aged Out No longer eligi ble based on patient's age to complete this topic HPV VACCINE Aged Out No longer eligi ble based on patient's age to complete this topic MENINGOCOCCAL (Group B) VACCINE SHARED DECISION-MAKING Aged Out No longer eligible based on patient's age to complete this topic MENINGOCOCCAL GROUPS A/C/Y/W VACCINE Aged Out No longer eligible based on patient's age to complete this topic Medical Devices Implanted Type Area Telecom Specialist Device Identifier Shelf Expiration Date Model / Serial / Lot Femoral Nail Retrograde System Implanted:Qty: 1 on 06/28/2023 by Amalia Mendez MD at [facility] Left: [employer] 07/04/2032 [id number] / / [id number] Advanced Locking Screw Imn Screws System Implanted:Qty: 1 on 06/28/2023 by Amalia Mendez MD at [facility] Left: [employer]nee [employer] 07/04/2029 [id number] / / [id number] Advanced Locking Screw Imn Screws System Implanted:Qty: 1 on 06/28/2023 by Amalia Mendez MD at [facility] Left: [employer] 02/01/2033 [id number] / / [id number] Advanced Locking Screw Imn Screws System Implanted:Qty: 1 on 06/28/2023 by Amalia Mendez MD at [facility] Left: [employer] 03/03/2029 [id number] / / [id number] Advanced Locking Screw Imn Locking System Implanted:Qty: 1 on 06/28/2023 by Amalia Mendez MD at [facility] Left: [employer] 02/01/2033 [id number] / / [id number] Locking Screw Imn Screws System Implanted:Qty: 1 on 06/28/2023 by Amalia Mendez MD at [facility] Left: [employer] 12/02/2031 [id number] / / [id number] Locking Screw Imn Screws System Implanted:Qty: 1 on 06/28/2023 by Amalia Mendez MD at [facility] Left: [employer] 09/01/2032 [id number] / / [id number] Insurance [employer] MANAGED MEDICARE ADV Advance Directives * Full Code (Latest Code Status on File) Date Activated Date Inactivated Comments 06/25/2023 8:31 PM 07/02/2023 7:09 PM * Full Code Date Activated Date Inactivated Comments 06/25/2023 3:26 PM 06/25/2023 8:31 PM Care Teams Car Dispatcher Relationship Specialty Start Date End Date Hawa Carmichael, POLITICAL THEORY PROFESSOR-OFFICE MACHINE SERVICER APPRENTICE [address] [place] [address] PCP - General Nurse Practitioner 07/31/24
--- OUTSIDE RECORDS SUMMARY | 2024-10-21 14:33 | XMS_ITS | Patient Health Record ---
Author Organization [facility] Address [address] [place] [address] Care Team Providers Care Small Piece Cutter Name Role Phone Mike GARRETT, Devan Primary Care Provider Thelma GUTHRIE NP, LOAN Philip [phone] ALLERGIES Allergen (clinical drug ingredient) Drug/Non Drug Allergy documented on EMR Reaction Allergy Type Onset Date Status sulfacetamide Sulfacetamide hives Drug Allergy Active REASON FOR REFERRAL No Information MEDICATIONS Medication SIG (Take, Route, Frequency, Duration) Notes Start Date End Date Status Lisinopril 40 MG 1 tablet Orally Once a day Active Metoprolol Succinate 50 MG 1 capsule Ora lly Once a day Active Meloxicam 7.5 MG 1 tablet Orally Once a day Active hydrALAZINE HCl 50 MG 1 tablet with food Orally Three times a day Active Pantoprazole Sodium 40 MG 1 tablet Orall y Once a day Active amLODIPine Besylate 10 MG 1 tablet Orall y Once a day Active PROBLEMS Problem Type ICD Code Onset Dates Problem Status W/U Status Risk SNOMED Code Notes Problem Other chronic pancreatitis (K86.1) Active confirmed VITAL SIGNS Heart Rate 74 /min 12/14/2023 Blood pressure diastolic 79 mm Hg 12/14/2023 Height 65.5 in 12/14/2023 Blood pressure systolic 134 mm Hg 12/14/2023 Weight 206 lbs 12/14/2023 BMI 33.76 kg/m2 12/14/2023 Encounters Encounter Location Date Provider Diagnosis [facility] [address] [place] [address] 12/14/2023 LOAN GUTHRIE Other chronic pancreatitis K86.1 ASSESSMENTS Encounter Date Diagnosis Assessment Notes Treatment Notes Treatment Clinical Notes Section Notes 12/14/2023 Other chronic pancreatitis (ICD-10 - K86.1) educated on importance of low fat diet samples of Credante 36k given at this time to help if complaints occur, discussed placing herself on a clear liquid diet will follow up in office as needed 12/14/2023 Other Time spent: 20minutes. More than 50% spent reviewing diagnostic results, compliance with current medical therapy, counseling patient on low fat diet, weight reduction to normal BMI, normal BMI discussed, avoidance of ETOH/tobacco products, discussing treatment options. Have discussed details of EUS and/or ERCP procedure including indications/risks/ex pected outcomes/limitations /possible medication side effects, and alternatives to procedure. All questions answered and patient expresses understanding. No contraindications noted. Instructed patient regarding management plan, follow-up visits, and stressed importance of compliance with plan. PLAN OF TREATMENT Pending Test Test Name Order Date Endoscopic Retrograde Cholangiopancreato graphy (ERCP) 09/09/2021 Insurance Providers Payer Name Payer Address Payer Phone Subscriber Number Group Number Insured Name Patient Relationship to Insured Coverage Start Date Coverage End Date [employer] HMO-POS [address] [address] [place], [place] [id number] [address] Self - patient is the insured MEDICAL (GENERAL) HISTORY Medical History History ICD Code breast cancer HTN osteoarthritis Hep A hyperlipidemia GERD MVP IBS hemorrhoids anemia functional heart murmur neuropathy histoplasmosis Surgical History Surgery Date(Month/Year) colonoscopy Dr Cannon - normal 05/13/[address] Guallpa - modera tely sized hiatal hernia, esophagel dilatation performed 08/23/[address] Louis - severe pa pillary stenosis treated with ANDREEA, stents placed and removed 09/12/12 09/09/[address] Duval- enlarged an d abnormal mediastinal nodes, FNA without evidence of malignancy 09/26/12 24 hr motility/ph monitoring , abnormal esophagel body peristalsis, hypotensive LES, small hiatus hernia, elevated post swallow residual at [facility], ph with normal acid exposure 07/17/[address] guallpa - small hiatus hernia, emperic dilatation performed 08/13/[address] duval - normal pancreas and EGD 04/27/[address] Chacko - 3cm hiatal hernia, gastric erythema. neg H. pylori, mild chronic inflammation, mild acute, chronic duodenitis 11/25/[address] Louis - papillary stenosis s/p biliary and pancreatic sphincterotomies and stenting. PD stent removed 07/21/16, BD stent downsized, stent removed with residual bile duct sludge 10/05/16 07/19/16 colonoscopy Aliperti- diverticulosis, in t hemorrhoids 11/11/20 ERCP Aliperti- PS treated wi th bili/panc sphincterotomies, dual duct stenting performed and removed on 09/1409/12/21
--- OUTSIDE RECORDS SUMMARY | 2024-10-21 14:33 | XMS_ITS | Referral Summary ---
Author Organization [facility] Address [address] [place] [address] Care Team Providers Care Fatback Trimmer Name Role Phone JanyHawa ramos Edward KAM Primary Care Provider Encounters Date Type Department Care Team Description 08/20/2024 Results Follow-Up [facility] Gastroenterology at [address] [place] [phone] Kavon Lynn MD Surgical pathology 08/20/[address] [facility] Gastroenterology at [address] [place] [phone] Kavon Lynn MD 08/19/2024 1:45 PM CDT Anesthesia Event [facility] [address] [place] [address] Renee Galvez MD Lee, Walter, MD 08/19/2024 1:30 PM CDT - 08/19/2024 2:00 PM CDT Surgery [facility] [address] [place] [address] Kavon Lynn MD COLON BIOPSY 08/19/2024 12:12 PM CDT - 08/19/2024 3:20 PM CDT Hospital Encounter [facility] [address] [place] [address] Kavon Lynn MD Acute pancreatitis, unspecified complication status, unspecified pancreatitis type; Diarrhea, unspecified type; Gastroesophageal reflux disease without esophagitis Discharge Disposition: Discharge to home or self care 08/15/[address] [facility] Gastroenterology at [address] [phone] Kavon Lynn MD Acute pancreatitis, unspecified complication status, unspecified pancreatitis type (Primary Dx); Diarrhea, unspecified type; Gastroesophageal reflux disease without esophagitis 08/14/2024 Telephone [facility] Gastroenterology at [address] [phone] Kavon Lynn MD 08/11/2024 Orders Only [facility] Gastroenterology at [address] [phone] Kavon Lynn MD Allergy, subsequent encounter (Primary Dx) 08/11/2024 9:35 AM CDT Lab [address] [address] Acute pancreatitis, unspecified complication status, unspecified pancreatitis type; Diarrhea, unspecified type; Gastroesophageal reflux disease without esophagitis 08/06/2024 Telephone [facility] Gastroenterology at [address] [phone] Kavon Lynn MD 08/06/2024 Orders Only [facility] Gastroenterology at [address] [phone] Kavon Lynn MD Elevated liver function tests (Primary Dx); Elevated liver enzymes 08/05/2024 Orders Only [facility] Gastroenterology at [address] [phone] Kavon Lynn MD Acute pancreatitis, unspecified complication status, unspecified pancreatitis type (Primary Dx) 08/05/2024 Results Follow-Up [facility] Gastroenterology at [address] [phone] Kavon Lynn MD CRP (acute phase), Erythrocyte sedimentation rate, Comprehensive metabolic panel, Additional followed-up results: 3 08/05/2024 2:00 PM RESOURCE EFFICIENCY MANAGER Lab [facility] [address] [place] [address] Acute pancreatitis, unspecified complication status, unspecified pancreatitis type; Diarrhea, unspecified type; Gastroesophageal reflux disease without esophagitis 08/05/2024 1:00 PM RESOURCE EFFICIENCY MANAGER Office Visit [facility] Gastroenterology at [place] [address] [facility] [address] [place] [phone] Kavon Lynn MD Acute pancreatitis, unspecified complication status, unspecified pancreatitis type (Primary Dx); Diarrhea, unspecified type; Gastroesophageal reflux disease without esophagitis from Last 3 Months Allergies Active Allergy Reactions Criticality Noted Date Comments Adhesive Itching,Rash Medium 02/03/2016 Iodine Hives Medium 03/02/2016 Morphine Itching,Swelling High 04/10/2016 Sulfa (Sulfonamide Antibiotics) Medications amLODIPine (NORVASC) 10 mg tablet Take 1 tablet (10 mg total) by mouth daily 2 Active ergocalciferol (VITAMIN D) 50,000 unit capsule Take 1 capsule (50,000 Units total) by mouth once a week Sunday 0 Active hydrALAZINE (APRESOLINE) 50 mg tablet Take 1 tablet (50 mg total) by mouth 3 (three) times a day 2 Active lisinopriL (PRINIVIL,ZESTRI L) 20 mg tablet Take 1 tablet (20 mg total) by mouth daily 2 Active meloxicam (MOBIC) 7.5 mg tablet Take 1 tablet (7.5 mg total) by mouth 2 (two) times a day 2 Active metoprolol XL (TOPROL-XL) 50 mg extended release tablet Take 1 tablet (50 mg total) by mouth daily 2 Active omeprazole (PriLOSEC) 40 mg capsule Take 1 capsule (40 mg total) by mouth daily Active exemestane (AROMASIN) 25 mg tablet Take 1 tablet (25 mg total) by mouth daily after breakfast Active fluticasone propionate (FLONASE) 50 mcg/actuation nasal spray Administer 2 sprays into each nostril daily as needed for rhinitis Active L. gasseri-B. bifidum-B longum 1.5 billion cell capsule Take 1 capsule by mouth daily Active famotidine (PEPCID) 40 mg tabletIndication s:Gastroesophage al reflux disease without esophagitis Take 1 tablet (40 mg total) by mouth nightly as needed for heartburn 30 tablet 3 5 Active predniSONE (DELTASONE) 50 mg tabletIndication s:Allergy, subsequent encounter Take 1 tab (50 mg total) 13 hours, 1 tab (50 mg total) 7 hours, and 1 (50 mg total) hour prior to exam. 3 tablet 5 Active Additional Information Patient not taking.Reported on 08/19/2024 diphenhydrAMINE (BENADRYL) 50 mg capsuleIndicatio ns:Allergy, subsequent encounter Take 1 tab (50 mg total) one hour prior to testing. 1 capsule 5 Active aspirin 325 mg enteric coated tablet Take 1 tablet (325 mg total) by mouth daily Active zolpidem (AMBIEN) 5 mg tablet Take 1 tablet (5 mg total) by mouth nightly as needed 5 Active rosuvastatin (CRESTOR) 5 mg tablet Take 1 tablet (5 mg total) by mouth daily 5 Active Active Problems Problem Noted Date Diagnosed Date Gastroesophageal reflux disease without esophagi tis 08/15/2024 Diarrhea 08/05/2024 Assessment & Plan (08/05/2024 1:23 PM RESOURCE EFFICIENCY MANAGER): Chronic diarrhea after meals, 2-3 loose to [...] to having procedure done. Essential hypertension 10/29/2022 05/28/202 3 Acute duodenitis 10/29/2022 GERD without esophagitis 10/29/2022 History of pancreatitis 10/29/2022 Abdominal pain 09/13/2021 Assessment & Plan (08/05/2024 1:23 PM RESOURCE EFFICIENCY MANAGER): Chronic GERD, not well-controlled with omeprazole 40 [...] (09/13/2021): Added automatically from request for surgery [id number] Assessment & Plan (08/05/2024 1:20 PM RESOURCE EFFICIENCY MANAGER): Has had a cholecystectomy. 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(+) [place](+) HER2 (-) Ki-67 - 15.8% Oncotype-Dx score: 3 Medical oncologist- Raj Endocrine: 2.5mg Letrozole BREAST CANCER TREATMENT SUMMARY AND SURVIVORSHIP PLAN Patient name: Ingrid Grant Patient Patient : 1950 CARE TEAM Medical oncologist: Dr Neeraj Anthony Surgeon: Dr Maya Cornejo Primary care physician: Dr Devan Mckeon TYPESETTER APPRENTICE: Dr Gunjan Rodriguez TREATMENT SUMMARY Diagnosis date: [...] POSITIVE-01/09 Estrogen: POSITIVE-01/09 Progesterone: POSITIVE-01/09 Progesterone: POSITIVE-01/09 [id number]: NEGATIVE Hdm4Ulz: NEGATIVE Ki-67: 10.9% Ki-67: 15.8% 02/14/16: MRI [...] other tests as indicated on each visit TITLE I MATH TUTOR -Continue your yearly visit. *Physical exam and other tests (Pap test) as indicated on each visit. Possible late and/or senior care affects that someone with this type of [...] also good for overall health. REFERRALS [x] [facility] Integrative Therapy [] [facility] Pastoral Services [facility] at the [facility] [] Other (Specify): ADDITIONAL RESOURCES Patients may have many questions and concerns after their cancer treatment ends. A list of local resources as provided below to assist you. [facility] cancer information center: [place] Cancer Society (ACS): www.acs.org National Cancer Republic (NCI): www.cancer.gov [place] Society of clinical oncology (ASCO): www.cancer.net Komen: www.komen.org Livestrong: www.Owned ittronMob Science Radiation therapy: www.rtanswers.org Patient signature: Akin Jodee/EDDY/RN signature: Eden Brooke RN BSN Date delivered on: 08/18/2016 Surgeon: Clemente Surgery: 04/10/16 bilateral TM/SLN Medical Oncologist: Chemotherapy: Radiation: none Hormonal therapy: Social History Tobacco Use Types Packs/Day Years Used Date Smoking Tobacco: Never Smokeless Tobacco: Never Tobacco Cessation:Counseling Given: Not Answered Social Connection and Isolation Panel [NHANES] A nswer Date Recorded In a typical week, how many times do you talk on the phone with family, friends, or neighbors? Once a week 09/13/2021 How often do you get together with friends or re latives? Never 09/13/2021 How often do you attend oriental orthodox or sikhism serv ices? Never 09/13/2021 Do you belong to any clubs o r organizations such as oriental orthodox groups, unions, fraternal or athletic groups, or [...] on file Legal Sex Female 2:51 AM RESOURCE EFFICIENCY MANAGER Gender Identity Not on file Sexual Orientation Not on file Last Filed Vital Signs Vital Sign Reading Time Taken Comments Blood Pressure 129/60 08/19/2024 2:30 PM CDT Pulse 75 08/19/2024 2:30 PM CDT Temperature 36.4 C (97.5 F) 08/19/2024 2:16 PM CDT Respiratory Rate 12 08/19/2024 2:30 PM CDT Oxygen Saturation 96% 08/19/2024 2:30 PM CDT Inhaled Oxygen Concentration - - Weight 90.7 kg (200 lb) 08/19/2024 12:38 PM CDT Height 165.1 cm (5' 5 ) 08/19/2024 12:38 PM CDT Body Mass Index 33.28 08/19/2024 12:38 PM CDT Plan of Treatment Not on file Medical Devices Implanted Type Area Loss Prevention And Safety Manager Device Identifier Shelf Expiration Date Model / Serial / Lot Other - See Comments Other - see comments Left: Femur Description:Davide Patella Patella Left: Knee Screw Screw Left: Foot Explanted Type Area Loss Prevention And Safety Manager Device Identifier Shelf Expiration Date Model / Serial / Lot [employer] Xavier Flexi-Stent 7fr 3cm Small Pigtail Flexible .035in Stent [id number] - [id number] Implanted:Qty : 1 on 09/12/2021 by Phan Louis MD at [facility] Explanted:Qty : 1 on 09/14/2021 by Phan Louis MD at [facility] Stent N/A: Bile Duct [employer] 01/01/2025 [id number] / / [id number] [employer] Xavier Flexi-Stent 4fr 2cm Small Pigtail Straight Flexible .025 6341 - [id number] Implanted:Qty : 1 on 09/12/2021 by Phan Louis MD at [facility] Explanted:Qty : 1 on 09/14/2021 at [facility] Stent N/A: Pancreas [employer] 04/03/2026 [id number] / / [id number] Wallflex 10mm X 60mm Fully Covered Biliary [id number] - [id number] Implanted:Qty : 1 on 09/12/2021 by Phan Louis MD at [facility] Explanted:Qty : 1 on 09/14/2021 by Phan Louis MD at [facility] N/A: Bile Duct [employer] Rosemary 05/16/2023 [id number] / / [id number] Procedures Procedure Name Priority Date/Time Associated Diagnosis Comments SURGICAL PATHOLOGY Routine 08/19/2024 1:48 PM CDT Acute pancreatitis, unspecified complication status, unspecified pancreatitis type Diarrhea, unspecified type Gastroesophageal reflux disease without esophagitis ESOPHAGOGASTRODUODENOSCOPY BIOPSY 08/19/2024 1:44 PM CDT Acute pancreatitis, unspecified complication status, unspecified pancreatitis type Diarrhea, unspecified type Gastroesophageal reflux disease without esophagitis COLON BIOPSY 08/19/2024 1:44 PM CDT Acute pancreatitis, unspecified complication status, unspecified pancreatitis type Diarrhea, unspecified type Gastroesophageal reflux disease without esophagitis EGD 08/19/2024 1:28 PM CDT COLONOSCOPY 08/19/2024 1:27 PM CDT POC BLOOD GAS AND CHEMISTRIE S, VENOUS Routine 08/19/2024 1:14 PM CDT LACTOFERRIN,QL,STOOL Routine 08/11/2024 7:29 AM CDT Acute pancreatitis, unspecified complication status, unspecified pancreatitis type Diarrhea, unspecified type Gastroesophageal reflux disease without esophagitis PANCREATIC ELASTASE, STOOL Routine 08/11 7:29 AM CDT Acute pancreatitis, unspecified complication status, unspecified pancreatitis type Diarrhea, unspecified type Gastroesophageal reflux disease without esophagitis C. DIFFICILE TESTING Routine 08/11/2024 7:29 AM CDT Acute pancreatitis, unspecified complication status, unspecified pancreatitis type Diarrhea, unspecified type Gastroesophageal reflux disease without esophagitis STOOL CULTURE Routine 08/11/2024 7:29 AM CDT Acute pancreatitis, unspecified complication status, unspecified pancreatitis type Diarrhea, unspecified type Gastroesophageal reflux disease without esophagitis CRYPTOSPORIDIUM AND GIARDIA ANTIGEN ASSAY Routine 08/11/2024 7:29 AM CDT Acute pancreatitis, unspecified complication status, unspecified pancreatitis type Diarrhea, unspecified type Gastroesophageal reflux disease without esophagitis IMMUNOGLOBULIN G SUBCLASS 4 Routine 10/2024 12:56 PM RESOURCE EFFICIENCY MANAGER Acute pancreatitis, unspecified complication status, unspecified pancreatitis type FILARIA ANTIBODY, IGG4 Routine 2:40 PM RESOURCE EFFICIENCY MANAGER EGFR Routine 08/05/2024 2:06 PM RESOURCE EFFICIENCY MANAGER Acute pancreatitis, unspecified complication status, unspecified pancreatitis type Diarrhea, unspecified type Gastroesophageal reflux disease without esophagitis DIFFERENTIAL AUTO Routine 08/05/2024 2:06 PM RESOURCE EFFICIENCY MANAGER Acute pancreatitis, unspecified complication status, unspecified pancreatitis type Diarrhea, unspecified type Gastroesophageal reflux disease without esophagitis GLIADIN ANTIBODY, IGA Routine 08/05/2024 2:06 PM RESOURCE EFFICIENCY MANAGER Acute pancreatitis, unspecified complication status, unspecified pancreatitis type Diarrhea, unspecified type Gastroesophageal reflux disease without esophagitis TISSUE TRANSGLUTAMINASE, IGA Routine 09/2024 2:06 PM RESOURCE EFFICIENCY MANAGER Acute pancreatitis, unspecified complication status, unspecified pancreatitis type Diarrhea, unspecified type Gastroesophageal reflux disease without esophagitis CBC WITH AUTO DIFFERENTIAL Routine 08/05 2:06 PM RESOURCE EFFICIENCY MANAGER Acute pancreatitis, unspecified complication status, unspecified pancreatitis type Diarrhea, unspecified type Gastroesophageal reflux disease without esophagitis COMPREHENSIVE METABOLIC PANEL Routine 2:06 PM RESOURCE EFFICIENCY MANAGER Acute pancreatitis, unspecified complication status, unspecified pancreatitis type Diarrhea, unspecified type Gastroesophageal reflux disease without esophagitis ERYTHROCYTE SEDIMENTATION RATE Routine 0 08/05/2024 2:06 PM RESOURCE EFFICIENCY MANAGER Acute pancreatitis, unspecified complication status, unspecified pancreatitis type Diarrhea, unspecified type Gastroesophageal reflux disease without esophagitis CRP (ACUTE PHASE) Routine 08/05/2024 2:06 PM RESOURCE EFFICIENCY MANAGER Acute pancreatitis, unspecified complication status, unspecified pancreatitis type Diarrhea, unspecified type Gastroesophageal reflux disease without esophagitis CELIAC DISEASE ANTIBODY SCREEN Routine 0 08/05/2024 2:06 PM RESOURCE EFFICIENCY MANAGER Acute pancreatitis, unspecified complication status, unspecified pancreatitis type Diarrhea, unspecified type Gastroesophageal reflux disease without esophagitis from Last 3 Months Results * Surgical pathology (08/19/2024 1:48 PM CDT) Tissue specimen (specimen) (Gastric/Stomach biopsy) 08/19/2024 1:48 PM CDT Tissue specimen (specimen) (Gastric/Stomach biopsy) 08/19/2024 1:50 PM CDT Tissue specimen (specimen) (Gastric/Stomach biopsy) 08/19/2024 1:51 PM CDT Tissue specimen (specimen) (Colon, Biopsy) 08/19/2024 1:57 PM CDT Tissue specimen (specimen) (Colon, Biopsy) 08/19/2024 1:59 PM CDT Tissue specimen (specimen) (Colon, Biopsy) 08/19/2024 2:06 PM CDT Narrative PATHOLOGY [facility] - 08/20/2024 6:[address] [facility] Department of Pathology [address] [place] [address] Note to Patients: This report may contain a detailed description of human tissue sent by a health care provider to the laboratory for pathologic evaluation. The content of this report is essential for diagnosis and may provide important critical findings. This information may be unfamiliar to patients to review without a medical professional present. It is advised that the patient review this report in the presence of a health care provider who can answer questions and explain the details. Final Report Patient Name: INGRDI GRANT : 1950 (Age: 74) Gender: F Address: [address] [place], [place] [id number] Hospital #: [id number] Service: Gastro Location: Patient Type: [facility] OUTPATIENT Taken: 08/19/2024 Received: 08/19/2024 Accessioned: 08/19/2024 Reported: 08/20/2024 Physician(s): Jodee Causey M.D. Diagnosis: A. Duodenum, biopsy - Duodenal mucosa with no significant pathologic change. B. Gastric body and antrum, biopsy - Corpus and antral mucosa with reactive gastropathy. - No H. pylori or intestinal metaplasia identified. C. Distal esophagus, biopsy - Squamous epithelium with glycogenic acanthosis. D. Cecal polyp, biopsy - Polypoid colonic mucosa with no significant pathologic change. E. Random colon, biopsy - Colonic mucosa with no significant pathologic change. F. Rectosigmoid colon polyps x2, biopsy - Hyperplastic polyps. Rhys Davalos M.D. Report Electronically Reviewed and Signed Out By Rhys Davalos M.D. 08/20/2024 18:42:34 Specimen(s) Received: A: Duodenal biopsy rule out Celiacs disease B: Gastric bodya and antrum biopsy rule out H. Pylori C: Distal esophageal biopsy rule out King's esophagus D: Cecum polyp biopsy E: Random colon biopsy F: Recto sigmoid colon polyp x2 Microscopic Description: Microscopic examination is performed. Microscopic examination is performed. Clinical History: The patient is a 74-year-old woman with acute pancreatitis, diarrhea and GERD without esophagitis. Operative procedure: Upper GI endoscopy and colonoscopy with biopsy. Gross Description Received in six formalin jars labeled with the patient's identifiers. A. Labeled duodenal biopsy rule out celiac disease and consists of three parker-pink tissue fragments ranging from 0.1-0.3 cm. Entirely submitted. Labeled A1. Jar 0. B. Labeled gastric body and antrum biopsy rule out H pylori and consists of three parker-pink tissue fragments ranging from 0.1-0.4 cm. Entirely submitted. Labeled B1. Jar 0. C. Labeled distal esophageal biopsy rule out King's esophagus and consists of three parker-white tissue fragments ranging from 0.2-0.4 cm. Entirely submitted. Labeled C1. Jar 0. D. Labeled cecum polyp biopsy and consists of two parker tissue fragments each measuring 0.4 cm. Entirely submitted. Labeled D1. Jar 0. E. Labeled random colon biopsy and consists of five parker tissue fragments ranging from 0.1-0.4 cm. Entirely submitted. Labeled E1. Jar 0. F. Labeled rectosigmoid colon polyp x2 and consists of three parker-pink tissue fragments ranging from 0.2-0.3 cm. Entirely submitted. Labeled F1. Jar 0. jjmhb/08/19/2024 15:00 SH[facility]UTHI S[facility]ay, [facility] Microscopic slide review and interpretation for this case was performed at [facility], Department of Surgical Pathology, [address] [facility] [place] [id number], [place] [address] [facility] # [id number] us Kavon Lynn MD LAB PATHOLOGY ORDERABLES Final R esult PATHOLOGY [facility] * EGD (08/19/2024 1:28 PM CDT) Anatomical Region Laterality Modality Other Narrative Procedure Note Kavon Lynn MD - 08/19/2024 1:28 PM CDT [facility] GI ENDOSCOPY Patient Name: Ingrid Grant Procedure Date: 08/19/2024 1:28 PM Date of : 1950 Admit Type: Outpatient Age: 74 Gender: Female Attending MD: Kavon Lynn M.D. Room: [facility] ENDOSCOPY ROOM 03 Note Status: Finalized Procedure: Upper GI endoscopy Indications: Gastro-esophageal reflux disease Referring MD: Providers: Kavon Lynn M.D. Medicines: Monitored Anesthesia Care Complications: No immediate complications. Procedure: Pre-Anesthesia Assessment: - Prior to the procedure, a History and Physicalwas performed, and patient medications and allergieswere reviewed. The risks and benefits of the procedureand the sedation options and risks were discussed withthe patient. All questions were answered and informed consent was obtained. Patient identification and proposed procedure were verified. After reviewingthe risks and benefits, the patient was deemed in satisfactory condition to undergo the procedure.The anesthesia plan was to use monitored anesthesiacare (MAC). Immediately prior to administration of medications, the patient was re-assessed foradequacy to receive sedatives. The heart rate, respiratory rate, oxygen saturations, blood pressure, adequacyof pulmonary ventilation, and response to care were monitored throughout the procedure. The physical status of the patient was re-assessed after the procedure. The benefits, risks, and alternatives to theprocedure and sedation were discussed and informed consentwas obtained. The scope was passed under direct vision. The GIF-Q180 upper endoscope was introduced through the mouth, and advanced to the second part of duodenum. The upper GI endoscopy was accomplished without difficulty. The patient tolerated the procedure well. Findings: A non-obstructing and mild Schatzki ring was found at the gastroesophageal junction. Biopsies were taken with a cold forcepsfor histology. A 3 cm hiatal hernia was present. Mild inflammation characterized by erythema was found in the stomach. Biopsies were taken with a cold forceps for Helicobacter pyloritesting. The examined duodenum was normal. Biopsies for histology were takenwith a cold forceps for evaluation of celiac disease. The cardia and gastric fundus were normal on retroflexion. The exam was otherwise without abnormality. Impression: - Non-obstructing and mild Schatzki ring.Biopsied. - 3 cm hiatal hernia. - Gastritis. Biopsied. - Normal examined duodenum. Biopsied. - The examination was otherwise normal. Recommendation: - Patient has a contact number available for emergencies. The signs and symptoms of potential delayed complications were discussed with thepatient. Return to normal activities tomorrow. Written discharge instructions were provided to thepatient. - GERD RECOMMENDATIONS given include: anti-reflux maneuvers, avoid acidic foods like oranges and tomatoes, avoidance of spicy foods, avoid eating3-4 hours before bed, elevation of the head of the bed, and weight loss. - Continue omeprazole 40 mg p.o. daily andfamotidine 40 mg p.o. q.h.s. p.r.n. - Await pathology results. - Return to GI clinic as previously scheduled. Kavon Lynn M.D. Kavon Lynn M.D. 08/19/2024 2:13:02 PM . Number of Addenda: 0 Note Initiated On: 08/19/2024 1:28 PM Recognized by the [place] [employer] for promoting quality in endoscopy us Kavon Lynn MD ENDOSCOPY PROCEDURES Final Resul t * Colonoscopy (08/19/2024 1:27 PM CDT) Anatomical Region Laterality Modality Other Narrative Procedure Note Kavon Lynn MD - 08/19/2024 1:27 PM CDT [facility] GI ENDOSCOPY Patient Name: Ingrid Grant Procedure Date: 08/19/2024 1:27 PM Date of : 1950 Admit Type: Outpatient Age: 74 Gender: Female Attending MD: Kavon Lynn M.D. Room: [facility] ENDOSCOPY ROOM 03 Note Status: Finalized Procedure: Colonoscopy Indications: Chronic diarrhea Referring MD: Providers: Kavon Lynn M.D. Medicines: Monitored Anesthesia Care Complications: No immediate complications. Estimated Blood Loss: Estimated blood loss: none. Procedure: Pre-Anesthesia Assessment: - Prior to the procedure, a History and Physicalwas performed, and patient medications and allergieswere reviewed. The risks and benefits of the procedureand the sedation options and risks were discussed withthe patient. All questions were answered and informed consent was obtained. Patient identification and proposed procedure were verified. After reviewingthe risks and benefits, the patient was deemed in satisfactory condition to undergo the procedure.The anesthesia plan was to use monitored anesthesiacare (MAC). Immediately prior to administration of medications, the patient was re-assessed foradequacy to receive sedatives. The heart rate, respiratory rate, oxygen saturations, blood pressure, adequacyof pulmonary ventilation, and response to care were monitored throughout the procedure. The physical status of the patient was re-assessed after the procedure. The benefits, risks and alternatives of theprocedure and sedation were discussed and informed consentwas obtained. All questions were answered. Please referto the signed informed consent document in the medical record. The scope was passed under direct vision.The [id number] colonoscope was introduced through theanus and advanced to the terminal ileum. The colonoscopy was performed without difficulty. The patient tolerated the procedure well. The quality of thebowel preparation was adequate. Scope withdrawal time was11 minutes. Prep was administered in a split dose. Findings: The perianal and digital rectal examinations were normal. The terminal ileum appeared normal. A diminutive polyp was found in the cecum. The polyp was removed witha cold biopsy forceps. Resection and retrieval were complete. Two polyps were found in the recto-sigmoid colon. The polyps were diminutive in size. These polyps were removed with a cold biopsy forceps. Resection and retrieval were complete. Many small-mouthed diverticula were found in the sigmoid colon. The left colon was moderately tortuous. Non-bleeding internal hemorrhoids were found during retroflexion. The hemorrhoids were small. The exam was otherwise without abnormality. Biopsies for histology were taken with a cold forceps from the right colon and left colon for evaluation of microscopic colitis. Impression: - The examined portion of the ileum was normal. - One diminutive polyp in the cecum, removed with a cold biopsy forceps. Resected and retrieved. - Two diminutive polyps at the recto-sigmoid colon, removed with a cold biopsy forceps. Resected and retrieved. - Diverticulosis in the sigmoid colon. - Tortuous colon. - Non-bleeding internal hemorrhoids. - The examination was otherwise normal. - Biopsies were taken with a cold forceps from the right colon and left colon for evaluation of microscopic colitis. Recommendation: - Patient has a contact number available for emergencies. The signs and symptoms of potential delayed complications were discussed with thepatient. Return to normal activities tomorrow. Written discharge instructions were provided to thepatient. - High fiber diet. - Continue present medications. - Await pathology results. - Repeat colonoscopy in 5 years for surveillance. Kavon Lynn M.D. Kavon Lynn M.D. 08/19/2024 2:15:20 PM . Number of Addenda: 0 Note Initiated On: 08/19/2024 1:27 PM Recognized by the [place] [employer] for promoting quality in endoscopy Kavon Lynn MD ENDOSCOPY PROCEDURES Final Resul t * (ABNORMAL) POC Blood Gas and Chemistries, Venous - (08/19/2024 1:14 PM CDT) pH,idania POC 7.53(H) 7.32 - 7.43 pCO2, idania POC 28(L) 40 - 50 mmHg [facility] pO2,idania POC 63 mmHg [facility] Comment: Interpretive Data No reference range established. Current interpretive data was last revised 2020. HCO3, idania (Calc) POC 23 20 - 30 mmol/L [facility] Base excess, idania POC 1 mmol/L [facility] Comment: Interpretive Data No reference range established. Current interpretive data was last revised 2020. Hemoglobin, idania POC 12.6 11.9 - 15.5 g/dL [facility] Hematocrit, idania POC 37.0 35.6 - 45.5 % [facility] Sodium, idania POC 139 135 - 145 mmol/L [facility] Potassium, idania POC 3.8 3.3 - 4.9 mmol/L [facility] Comment: Interpretive Data This method is not able to assess for hemolysis, which may falsely increase potassium concentrations. If further testing is needed to evaluate this result, consider in-laboratory plasma potassium. Current Interpretive Data was last revised on 2022. Glucose, idania POC 99 70 - 199 mg/dL [facility] Ionized Calcium, idania POC 4.70 4.50 - 5.10 mg/dL [facility] Blood 08/19/2024 1:14 PM CDT 08/19/2024 1:14 PM CDT Kavon Lynn MD LAB POCT ORDERABLES - DEVICE Fin al Result Performing Organization Address [facility] Co de Phone Number [address] [address] * C. difficile testing Stool (08/11/2024 7:29 AM CDT) C. diff result See Comment Negative, DNA Comment:Formed stool -Testin g not performed. C. diff interp See Comment [facility] Comment:Formed stool -Testin g not performed. Stool 08/11/2024 7:29 AM CDT 08/11/2024 9:49 AM CDT Kavon Lynn MD LAB MICROBIOLOGY - GENERAL ORDER SAM Final Result Performing Organization Address [facility] Co de Phone Number [address] [address] * Lactoferrin, Fecal (08/11/2024 7:29 AM CDT) Lactoferrin, fecal Negative Negative Stool 08/11/2024 7:29 AM CDT 08/11/2024 9:49 AM CDT Kavon Lynn MD LAB BODY FLUIDS AND STOOLS ORDER SAM Final Result Performing Organization Address [facility] Co de Phone Number [address] [address] * Cryptosporidium and Giardia antigen assay Stool (08/11/2024 7:29 AM CDT) Giardia Ag Negative Negative Comment:Testing performed by : [facility], [address] [place] [address] Cryptosporidium Ag Negative Negative SNEHA JAMES Comment: Interpretive data: Testing performed by the [facility] using an immunoassay that detects Cryptosporidium and Giardia antigens in stool specimens. If comprehensive examination for ova and parasites is required, please request Ova and Parasite Examination . Testing performed by: [facility], [address] [place]., [address] Stool 08/11/2024 7:29 AM CDT 08/11/2024 2:17 PM CDT Kavon Lynn MD LAB MICROBIOLOGY - GENERAL ORDER SAM Final Result Performing Organization Address [facility] Co de Phone Number LOR[address] [place] [address] * Pancreatic elastase, stool (08/11/2024 7:29 AM CDT) Pancreatic elastase, stool 246 >200 (Normal) mcg/g [facility] Comment: Test Performed by: [place] [address] Police Commissioner: Vijay Francisco Ph.D.; CLIA# [id number] Stool 08/11/2024 7:29 AM CDT 08/11/2024 9:49 AM CDT Kavon Lynn MD LAB BODY FLUIDS AND STOOLS ORDER SAM Final Result Performing Organization Address [facility] Co de Phone Number [address] [place] [address] [facility] * Stool culture Stool Rectum (08/11/2024 7:29 AM CDT) Direct Specimen Exam Shiga Toxin Testing: Antigen detection assay for Shiga-toxin NEGATIVE for Shiga Toxin 1 and Shiga Toxin 2. Comment:Testing performed by : [facility], [address] [place] [address] Report Final Report: No growth of enteric bacterial pathogens SNEHA JMAES Comment:Testing performed by : [facility], [address] [facility], [place]., [address] Stool (Rectum) 08/11/2024 7: 29 AM CDT 08/11/2024 2:17 PM CDT Narrative SNEHA - 08/15/2024 11:24 AM CDT Testing performed by [facility] ([phone]). Routine stool cultures include procedures to detect Salmonella, Shigella, Edwardsiella, Aeromonas, Pleisiomonas, Campylobacter, Yersinia, E. coli O157, and Shiga-like toxins. Vibrio is cultured only upon special request. If Vibrio is suspected, please call the laboratory at [phone]. Interpretive data was last updated October 09, 2016. Kavon Lynn MD LAB MICROBIOLOGY - GENERAL ORDER SAM Final Result Performing Organization Address City/[facility]/ZIP Co de Phone Number LORRIMUSTAPHA [address] [facility] [place] [address] * Immunoglobulin G subclass 4 (08/06/2024 12:56 PM RESOURCE EFFICIENCY MANAGER) Pathologist [facility] Immunoglobulin G Subclass 4 27.0 4.0 - 86.0 mg/dL [facility] Blood 08/06/2024 12:5 6 PM RESOURCE EFFICIENCY MANAGER 08/06/2024 12:58 PM RESOURCE EFFICIENCY MANAGER Kavon Lynn MD LAB BLOOD ORDERABLES Final Resul t QUEST [facility] [address] [place] [address] * Filaria Antibody, IgG4 (08/05/2024 2:40 PM RESOURCE EFFICIENCY MANAGER) Pathologist [facility] Filaria ab, IgG4 0.[address] [facility] [employer] [facility], Comment: REFERENCE RANGE: <2.50 INTERPRETIVE CRITERIA: <2.50 NEGATIVE >=2.50 POSITIVE This assay detects Filaria IgG4 associated with infections caused by the major filarial parasites, including Dirofilaria immitis, Wuchereria brancrofti, Brugia malayi, and Onchocerca volvulus. Chronic filarial infections manifesting as elephantiasis may not show a significant IgG4 response and cannot be ruled out using this test. Samples containing antibodies to other nematodes, particularly Strongyloides, may cross-react in the assay. This test was developed and its analytical performance characteristics have been determined by [email or web address]. It has not been cleared or approved by the U.S. Food and Drug Administration. This assay has been validated pursuant to the CLIA regulations and is used for clinical purposes. 08/05/2024 2:40 PM RESOURCE EFFICIENCY MANAGER 08/05/2024 2:40 PM RESOURCE EFFICIENCY MANAGER Kavon Lynn MD LAB BLOOD ORDERABLES Final Resul t SHAUN [email or web address], [address] [place] [address] * (ABNORMAL) eGFR (08/05/2024 2:06 PM RESOURCE EFFICIENCY MANAGER) eGFR 34(L) >=60 mL/min/1. 73 m2 Comment: Interpretive Data Reference Interval Normal >/= 90 mL/min/1.73m2 Mildly decreased* 60 - 89 mL/min/1.73m2 Mildly to moderately decreased 45 - 59 mL/min/1.73m2 Moderately to severely decreased 30 - 44 mL/min/1.73m2 Severely decreased 15 - 29 mL/min/1.73m2 Kidney Failure < 15 mL/min/1.73m2 *Relative to young adult level Estimated glomerular filtration rate is determined by the 2020 CKD-EPI equation recommended by the National Kidney Foundation (A Unifying Approach to GFR Estimation: Recommendations of the NKF-ASK Task Force on Reassessing the Inclusion of Race in Diagnosing Kidney Disease, JASN 2020). The CKD-EPI equation should not be used for patients with unstable renal function and has not been validated in children and those over 70. Current interpretive data was last reviewed 2021. Blood 08/05/2024 2:06 PM RESOURCE EFFICIENCY MANAGER 08/05/2024 2:29 PM RESOURCE EFFICIENCY MANAGER us Kavon Lynn MD LAB BLOOD ORDERABLES Final Resul t SNEHA [address] [facility] [place] [address] * Differential, auto (08/05/2024 2:06 PM RESOURCE EFFICIENCY MANAGER) Neutrophil abs 4.2 1.5 - 6.5 K/cumm Imm gran abs 0.0 0.0 - 0.1 K/cumm [facility] Lymphocyte abs 1.1 0.8 - 3.3 K/cumm [facility] Monocyte abs 0.7 0.2 - 0.8 K/cumm [facility] Eosinophil abs 0.2 0.0 - 0.5 K/cumm [facility] Basophil abs 0.1 0.0 - 0.1 K/cumm [facility] Neutrophil pct 68.3 % [facility] Comment: Interpretive Data Percent cell count reference ranges are not reported, since discordance with absolute values may lead to misinterpretation of CBC data. Current Interpretive Data was last revised on 2017. Imm gran pct 0.3 % [facility] Comment: Interpretive Data Percent cell count reference ranges are not reported, since discordance with absolute values may lead to misinterpretation of CBC data. Current Interpretive Data was last revised on 2017. Lymphocyte pct 17.2 % [facility] Comment: Interpretive Data Percent cell count reference ranges are not reported, since discordance with absolute values may lead to misinterpretation of CBC data. Current Interpretive Data was last revised on 2017. Monocyte pct 10.5 % [facility] Comment: Interpretive Data Percent cell count reference ranges are not reported, since discordance with absolute values may lead to misinterpretation of CBC data. Current Interpretive Data was last revised on 2017. Eosinophil pct 2.9 % [facility] Comment: Interpretive Data Percent cell count reference ranges are not reported, since discordance with absolute values may lead to misinterpretation of CBC data. Current Interpretive Data was last revised on 2017. Basophil pct 0.8 % [facility] Comment: Interpretive Data Percent cell count reference ranges are not reported, since discordance with absolute values may lead to misinterpretation of CBC data. Current Interpretive Data was last revised on 2017. Blood 08/05/2024 2:06 PM RESOURCE EFFICIENCY MANAGER 08/05/2024 2:29 PM RESOURCE EFFICIENCY MANAGER Kavon Lynn MD LAB BLOOD ORDERABLES Final Resul t Performing Organization Address [facility] Co de Phone Number [address] [place] [address] * (ABNORMAL) CBC with auto differential (08/05/2024 2:06 PM RESOURCE EFFICIENCY MANAGER) [facility] WBC 6.2 3.8 - 9.9 K/cumm Hgb 12.3 11.9 - 15.5 g/dL [facility] Hct 38.9 35.6 - 45.5 % [facility] Plt 346 150 - 400 K/cumm [facility] MPV 9.6 9.1 - 12.3 fL [facility] RBC 4.28 3.90 - 5.20 M/cumm [facility] MCV 90.9 81.3 - 96.4 fL [facility] MCH 28.7 27.1 - 33.3 pg [facility] MCHC 31.6(L) 32.3 - 35.7 g/dL [facility] RDW CV 13.1 11.1 - 14.9 % [facility] RDW SD 43.2 35.7 - 48.1 fL [facility] NRBC abs 0.00 0.00 - 0.01 K/cumm [facility] Blood 08/05/2024 2:06 PM RESOURCE EFFICIENCY MANAGER 08/05/2024 2:29 PM RESOURCE EFFICIENCY MANAGER Kavon Lynn MD LAB BLOOD ORDERABLES Final Resul t Performing Organization Address [facility] Co de Phone Number [address] [address] * Gliadin antibody, IgA (08/05/2024 2:06 PM RESOURCE EFFICIENCY MANAGER) Anti-gliadin, IgA <0.5 <=14.9 units/mL Comment: Interpretive data Negative: <15 units/mL Positive: > or equal to 15 units/mL Current interpretive data was last revised on 2016. Testing performed by: [facility], [address] [place]., [address] Blood 08/05/2024 2:06 PM RESOURCE EFFICIENCY MANAGER 08/05/2024 6:57 PM RESOURCE EFFICIENCY MANAGER Kavon Lynn MD LAB BLOOD ORDERABLES Final Resul t Performing Organization Address [facility] de Phone Number [address] [place] [address] * Tissue transglutaminase IgA (TGG-IgA Ab) (08/05/2024 2:06 PM RESOURCE EFFICIENCY MANAGER) TTG ab, IgA <0.5 <=14.9 units/mL Comment: Interpretive data Negative: <15 units/mL Positive: > or equal to 15 units/mL Current interpretive data was last revised on 2016. Testing performed by: [facility], [address] [place]., [address] Blood 08/05/2024 2:06 PM RESOURCE EFFICIENCY MANAGER 08/05/2024 6:57 PM RESOURCE EFFICIENCY MANAGER us Kavon Lynn MD LAB BLOOD ORDERABLES Final Resul t Performing Organization Address [facility] Co de Phone Number [address] [place] [address] * (ABNORMAL) Erythrocyte sedimentation rate (08/05/2024 2:06 PM RESOURCE EFFICIENCY MANAGER) Erythrocyte sedimentation rate 52(H) 1 - 30 mm/hr Blood 08/05/2024 2:06 PM RESOURCE EFFICIENCY MANAGER 08/05/2024 2:29 PM RESOURCE EFFICIENCY MANAGER us Kavon Lynn MD LAB BLOOD ORDERABLES Final Resul t Performing Organization Address [facility]/ZIP Co de Phone Number SNEHA [facility] [place] [address] * (ABNORMAL) CRP (acute phase) (08/05/2024 2:06 PM RESOURCE EFFICIENCY MANAGER) [facility] CRP 10.1(H) <=10.0 mg/L Blood 08/05/2024 2:06 PM RESOURCE EFFICIENCY MANAGER 08/05/2024 2:29 PM RESOURCE EFFICIENCY MANAGER Kavon Lynn MD LAB BLOOD ORDERABLES Final Resul t Performing Organization Address [facility] Co de Phone Number LORRI[address] [address] * (ABNORMAL) Comprehensive metabolic panel (08/05/2024 2:06 PM RESOURCE EFFICIENCY MANAGER) [facility] Sodium 141 135 - 145 mmol/L Potassium, pl 3.7 3.3 - 4.9 mmol/L [facility] Chloride 103 97 - 110 mmol/L [facility] CO2 25 22 - 32 mmol/L [facility] Anion gap 13 2 - 15 mmol/L [facility] BUN 17 6 - 25 mg/dL [facility] Creatinine 1.58(H) 0.60 - 1.10 mg/dL [facility] Glucose 108 70 - 199 mg/dL [facility] Comment: Interpretive Data Fasting glucose >/= 126 mg/dl is diagnostic for diabetes. Fasting is defined as no caloric intake for at least 8 hours. Fasting glucose between 100 mg/dl to 125 mg/dl is diagnostic of prediabetes. In a patient with classic symptoms of hyperglycemia or hyperglycemic crisis, a random glucose >/= 200 mg/dl is diagnostic for diabetes. In the absence of unequivocal hyperglycemia, results should be confirmed by repeat testing. The classification and Diagnosis of Diabetes Diabetes Care 202; 46: S19-S40. Current interpretive data was last revised 2022. Calcium 9.6 8.5 - 10.3 mg/dL [facility] Bilirubin, total 0.6 0.1 - 1.2 mg/dL [facility] Protein, pl 8.3 6.5 - 8.5 g/dL [facility] Albumin 4.3 3.5 - 5.0 g/dL [facility] Alk phos 143(H) 40 - 130 Units/L CERM[facility] ALT 15 7 - 45 Units/L [facility] AST 20 10 - 45 Units/L [facility] Blood 08/05/2024 2:06 PM RESOURCE EFFICIENCY MANAGER 08/05/2024 2:29 PM RESOURCE EFFICIENCY MANAGER Kavon Lynn MD LAB BLOOD ORDERABLES Final Resul t SNEHA JAMES [address] [facility] Department [place] [address] from Last 3 Months Insurance [facility] MEDICARE ADVANTAGE [facility] MEDICARE ADVANTAGE Advance Directives For more information, please contact: [phone] * LIMITED - No CPR (Latest Code Status on File) Date Activated Date Inactivated Comments 10/29/2022 3:51 PM 10/31/2022 7:06 PM * Full Code Date Activated Date Inactivated Comments 10/29/2022 2:19 PM 10/29/2022 3:51 PM * Full Code Date Activated Date Inactivated Comments 09/12/2021 7:50 AM 09/15/2021 4:05 PM Care Teams Fatback Trimmer Relationship Specialty Start Date End Date Hawa Carmichael NP [address] [place] [address] PCP - General Family Medicine 08/25/24
--- OUTSIDE RECORDS SUMMARY | 2024-10-21 14:33 | XMS_ITS | Clinical Summary ---
Author Organization [facility] Address [address] [place] [address] Care Team Providers Care Green Building Architect Name Role Phone Hawa Carmichael Edward DITCHING MACHINE OPERATING ENGINEER Primary Care Provider Allergies Active Allergy Reactions Criticality Noted Date [...] 08/05/2024 Assessment & Plan (08/05/2024 1:23 PM MANAGER HEART): Chronic diarrhea after meals, 2-3 loose to [...] to having procedure done. Essential hypertension 10/29/2022 3 Acute duodenitis 10/29/2022 GERD without esophagitis 10/29/2022 History of pancreatitis 10/29/2022 Abdominal pain 09/13/2021 Assessment & Plan (08/05/2024 1:23 PM MANAGER HEART): Chronic GERD, not well-controlled with omeprazole 40 [...] (09/13/2021): Added automatically from request for surgery [id number] Assessment & Plan (08/05/2024 1:20 PM MANAGER HEART): Has had a cholecystectomy. 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 (-) Ki-67 - 15.8% Oncotype-Dx score: 3 Medical oncologist- Raj Endocrine: 2.5mg Letrozole BREAST CANCER TREATMENT SUMMARY AND SURVIVORSHIP PLAN Patient name: Ingrid Grant Patient Patient : 1950 CARE TEAM Medical oncologist: Dr Neeraj Anthony Surgeon: Dr Maya Cornejo Primary care physician: Dr Devan Mckeon TURBINE ASSEMBLER: Dr Gunjan Rodriguez TREATMENT SUMMARY Diagnosis date: [...] POSITIVE-8 Estrogen: POSITIVE-01/09 Progesterone: POSITIVE-01/09 Progesterone: POSITIVE-01/09 Xeu8Ifn: NEGATIVE Alv3Cnz: NEGATIVE Ki-67: 10.9% Ki-67: 15.8% 02/14/16: MRI [...] other tests as indicated on each visit VIDEOTAPE OPERATOR -Continue your yearly visit. *Physical exam and other tests (Pap test) as indicated on each visit. Possible late and/or terminal operations supervisor affects that someone with this type of [...] [] [facility] at the [facility] [] Other (Specify): ADDITIONAL RESOURCES Patients may have many questions and concerns after their cancer treatment ends. A list of local resources as provided below to assist you. [facility] cancer information center: [place] [employer] (ACS): www.acs.org National Cancer [place] (NCI): www.cancer.gov [place] Society of clinical oncology (ASCO): www.cancer.net Komen: www.komen.org Livestrong: www.PadMatcher Radiation therapy: www.rtanswers.org Patient signature: Akin Jodee/EDDY/RN signature: Eden Brooke RN BSN Date delivered on: 08/18/2016 Surgeon: Clemente Surgery: 04/10/16 bilateral TM/SLN Medical Oncologist: Chemotherapy: Radiation: none Hormonal therapy: Encounters Date Type Department Care Team Description 08/20/2024 Results Follow-Up [facility] Gastroenterology at [address] [place] [address] Kavon Lynn MD Surgical pathology 08/20/2024 Documentation [facility] Gastroenterology at [address] [place] [phone] Kavon Lynn MD 08/19/2024 1:45 PM CDT Anesthesia Event [facility] [address] [place] [address] Renee Galvez MD Lee, Walter, MD 08/19/2024 1:30 PM CDT - 08/19/2024 2:00 PM CDT Surgery [facility] [address] [place] [address] Kavon Lynn MD COLON BIOPSY 08/19/2024 12:12 PM CDT - 08/19/2024 3:20 PM CDT Hospital Encounter [facility] [address] [place] [address] Kavon Lynn MD Acute pancreatitis, unspecified complication status, unspecified pancreatitis type; Diarrhea, unspecified type; Gastroesophageal reflux disease without esophagitis Discharge Disposition: Discharge to home or self care 08/15/2024 Orders Only [facility] Gastroenterology at [address] [address] Kavon Lynn MD Acute pancreatitis, unspecified complication status, unspecified pancreatitis type (Primary Dx); Diarrhea, unspecified type; Gastroesophageal reflux disease without esophagitis 08/14/2024 Telephone [facility] Gastroenterology at [address] [address] Kavon Lynn MD 08/11/2024 9:35 AM CDT Lab [facility] [place] [address] Acute pancreatitis, unspecified complication status, unspecified pancreatitis type; Diarrhea, unspecified type; Gastroesophageal reflux disease without esophagitis 08/11/2024 Orders Only [facility] Gastroenterology at [address] [address] Kavon Lynn MD Allergy, subsequent encounter (Primary Dx) 08/06/2024 Telephone [facility] Gastroenterology at [address] [address] Kavon Lynn MD 08/06/2024 Orders Only [facility] Gastroenterology at [address] [address] Kavon Lynn MD Elevated liver function tests (Primary Dx); Elevated liver enzymes 08/05/2024 2:00 PM MANAGER HEART Lab [facility] [address] [place] [address] Acute pancreatitis, unspecified complication status, unspecified pancreatitis type; Diarrhea, unspecified type; Gastroesophageal reflux disease without esophagitis 08/05/2024 1:00 PM MANAGER HEART Office Visit [facility] Gastroenterology at [address] [phone] Kavon Lynn MD Acute pancreatitis, unspecified complication status, unspecified pancreatitis type (Primary Dx); Diarrhea, unspecified type; Gastroesophageal reflux disease without esophagitis 08/05/2024 Orders Only [facility] Gastroenterology at [address] [address] Kavon Lynn MD Acute pancreatitis, unspecified complication status, unspecified pancreatitis type (Primary Dx) 08/05/2024 Results Follow-Up [facility] Gastroenterology at [address] [address] Kavon Lynn MD CRP (acute phase), Erythrocyte sedimentation rate, Comprehensive metabolic panel, Additional followed-up results: 3 from Last 3 Months Surgical History Surgery Date Site/Laterality Comments MASTECTOMY Bilateral CHOLECYSTECTOMY BUNIONECTOMY Bilateral APPENDECTOMY BREAST BIOPSY 02/03/2016 Right Medical History Medical History Date Comments GERD (gastroesophageal reflux disease) Hepatitis 1960 Pancreatitis Heart murmur Hypertension Hyperlipidemia Cataract Cancer (HCC) Breast cancer (HCC) Chronic constipation Hypothyroidism Chronic kidney disease Stroke (HCC) Sleep apnea Family History Medical History Relation Name Comments Colon cancer Father's Sister Relation Name Status Comments Father's Sister Social History Tobacco Use Types Packs/Day Years [...] Never 09/13/2021 How often do you attend taoist or quaker serv ices? Never 09/13/2021 Do you belong to any clubs o r organizations such as taoist groups, unions, fraternal or athletic groups, or [...] on file Legal Sex Female 2:51 AM MANAGER HEART Gender Identity Not on file Sexual Orientation Not on file Obstetrics History Last Filed Vital Signs Vital Sign Reading [...] 08/19/2024 12:38 PM CDT Plan of Treatment Health Maintenance Due Date Last Done Comments Breast Cancer Screening-Mammogram 1950 Depression Screening 1950 Hepatitis C Screening 1950 DTaP/Tdap/Td Vaccine (1 - Tdap) 1962 Hepatitis B Screening 1969 Zoster Vaccine (1 of 2) 1970 Well Visit 65+ 2016 Pneumococcal vaccine 65+ (2 of 2 - PCV) 05/31/2021 05/31/2020 Covid-19 Vaccine (3 - Modern a risk series) 06/02/2021 05/05/2021, 08/06/2020, 07/09/2020 Fall Risk Assessment 11/01/2023 10/31/2022 Osteoporosis Screening-Bone Density Scan 10/24/2024 10/24/2022, 10/24/2022, 08/18/2016 Colon Cancer Screening-Colonoscopy 08/19/20342024 Influenza Vaccine Completed 02/12/2024, , 03/09/2020, Additional history exists Medical Devices Implanted Type Area Duck Operator Device Identifier Shelf Expiration Date Model / Serial / Lot Other - See Comments Other - see comments Left: Femur Description:Davide Patella Patella Left: Knee Screw Screw Left: Foot Explanted Type Area Duck Operator Device Identifier Shelf Expiration Date Model / Serial / Lot [employer] Xavier Flexi-Stent 7fr 3cm Small Pigtail Flexible .035in Stent [id number] - [id number] Implanted:Qty : 1 on 09/12/2021 by Phan Louis MD at [facility] Explanted:Qty : 1 on 09/14/2021 by Phan Louis MD at [facility] Stent N/A: Bile Duct [employer] 01/01/2025 [id number] / / [id number] [employer] Xavier Flexi-Stent 4fr 2cm Small Pigtail Straight Flexible .025 6341 - [id number] Implanted:Qty : 1 on 09/12/2021 by Phan Louis MD at [facility] Explanted:Qty : 1 on 09/14/2021 at [facility] Stent N/A: Pancreas [employer] 04/03/2026 [id number] / / [id number] Wallflex 10mm X 60mm Fully Covered Biliary [id number] - [id number] Implanted:Qty : 1 on 09/12/2021 by Phan Louis MD at [facility] Explanted:Qty : 1 on 09/14/2021 by Phan Louis MD at [facility] N/A: Bile Duct [employer] Rosemary 05/16/2023 [id number] / / [id number] Procedures Procedure Name Priority Date/Time Associated Diagnosis [...] G SUBCLASS 4 Routine 10/2024 12:56 PM MANAGER HEART Acute pancreatitis, unspecified complication status, unspecified pancreatitis type FILARIA ANTIBODY, IGG4 Routine 2:40 PM MANAGER HEART EGFR Routine 08/05/2024 2:06 PM MANAGER HEART Acute pancreatitis, unspecified complication status, unspecified pancreatitis type Diarrhea, unspecified type Gastroesophageal reflux disease without esophagitis DIFFERENTIAL AUTO Routine 08/05/2024 2:06 PM MANAGER HEART Acute pancreatitis, unspecified complication status, unspecified pancreatitis type Diarrhea, unspecified type Gastroesophageal reflux disease without esophagitis GLIADIN ANTIBODY, IGA Routine 08/05/2024 2:06 PM MANAGER HEART Acute pancreatitis, unspecified complication status, unspecified pancreatitis type Diarrhea, unspecified type Gastroesophageal reflux disease without esophagitis TISSUE TRANSGLUTAMINASE, IGA Routine 09/2024 2:06 PM MANAGER HEART Acute pancreatitis, unspecified complication status, unspecified pancreatitis type Diarrhea, unspecified type Gastroesophageal reflux disease without esophagitis CBC WITH AUTO DIFFERENTIAL Routine 08/05 2:06 PM MANAGER HEART Acute pancreatitis, unspecified complication status, unspecified pancreatitis type Diarrhea, unspecified type Gastroesophageal reflux disease without esophagitis COMPREHENSIVE METABOLIC PANEL Routine 2:06 PM MANAGER HEART Acute pancreatitis, unspecified complication status, unspecified pancreatitis type Diarrhea, unspecified type Gastroesophageal reflux disease without esophagitis ERYTHROCYTE SEDIMENTATION RATE Routine 0 08/05/2024 2:06 PM MANAGER HEART Acute pancreatitis, unspecified complication status, unspecified pancreatitis type Diarrhea, unspecified type Gastroesophageal reflux disease without esophagitis CRP (ACUTE PHASE) Routine 08/05/2024 2:06 PM MANAGER HEART Acute pancreatitis, unspecified complication status, unspecified pancreatitis type Diarrhea, unspecified type Gastroesophageal reflux disease without esophagitis CELIAC DISEASE ANTIBODY SCREEN Routine 0 08/05/2024 2:06 PM MANAGER HEART Acute pancreatitis, unspecified complication status, unspecified pancreatitis [...] Biopsy) 08/19/2024 2:06 PM CDT Narrative PATHOLOGY [facility] - 08/20/2024 6:42 PM CDT [facility] Department of Pathology [address] [place] [address] Note to Patients: This report may contain [...] explain the details. Final Report Patient Name: INGRID GRANT : 1950 (Age: 74) Gender: F Address: [address] [place] [id number] Hospital #: [id number] Service: Gastro Location: Patient Type: [facility] OUTPATIENT Taken: 08/19/2024 Received: 08/19/2024 Accessioned: 08/19/2024 [...] Jar 0. jjmhb/08/19/2024 15:00 SHRUTHI Sesay, PA ([facility]) Microscopic slide review and interpretation for this case was performed at [facility], Department of Surgical Pathology, [address] [facility], [place] [id number], [place] [address] CLIA # [id number] Kavon Lynn MD LAB PATHOLOGY ORDERABLES Final R esult PATHOLOGY [facility] * EGD (08/19/2024 1:28 PM CDT) Anatomical Region Laterality Modality Other Narrative Procedure Note Kavon Lynn MD - 08/19/2024 1:28 PM CDT [facility] GI ENDOSCOPY Patient Name: Ingrid Grant Procedure Date: 08/19/2024 1:28 PM Date of : 1950 Admit Type: Outpatient Age: 74 Gender: Female Attending MD: Kavon Lynn M.D. Room: [facility] ENDOSCOPY ROOM 03 Note Status: Finalized Procedure: [...] On: 08/19/2024 1:28 PM Recognized by the [place] [employer] G[employer]intestinal [employer] for promoting quality in endoscopy us Kavon Lynn MD ENDOSCOPY PROCEDURES Final Resul t * Colonoscopy (08/19/2024 1:27 PM CDT) Anatomical Region Laterality Modality Other Narrative Procedure Note Kavon Lynn MD - 08/19/2024 1:27 PM CDT [facility] GI ENDOSCOPY Patient Name: Ingrid Grant Procedure Date: 08/19/2024 1:27 PM Date of : 1950 Admit Type: Outpatient Age: 74 Gender: Female Attending MD: Kavon Lynn M.D. Room: [facility] ENDOSCOPY ROOM 03 Note Status: Finalized Procedure: [...] The scope was passed under direct vision.The [id number] colonoscope was introduced through theanus and advanced [...] On: 08/19/2024 1:27 PM Recognized by the [place] [employer] Gastrointestinal [employer]oscopy for promoting quality in endoscopy Kavon Lynn MD ENDOSCOPY PROCEDURES Final Resul t * (ABNORMAL) POC Blood Gas and Chemistries, Venous - (08/19/2024 1:14 PM CDT) pH,idania POC 7.53(H) 7.32 - 7.43 pCO2, idania POC 28(L) 40 - 50 mmHg [facility] pO2,idania POC 63 mmHg [facility] Comment: Interpretive Data No reference range established. Current interpretive data was last revised 2020. HCO3, idania (Calc) POC 23 20 - 30 mmol/L [facility] Base excess, idania POC 1 mmol/L [facility] Comment: Interpretive Data No reference range established. Current interpretive data was last revised 2020. Hemoglobin, idania POC 12.6 11.9 - 15.5 g/dL [facility] Hematocrit, idania POC 37.0 35.6 - 45.5 % [facility] Sodium, idania POC 139 135 - 145 mmol/L [facility] Potassium, idania POC 3.8 3.3 - 4.9 mmol/L [facility] Comment: Interpretive Data This method is not able to assess for hemolysis, which may falsely increase potassium concentrations. If further testing is needed to evaluate this result, consider in-laboratory plasma potassium. Current Interpretive Data was last revised on 2022. Glucose, idania POC 99 70 - 199 mg/dL [facility] Ionized Calcium, idania POC 4.70 4.50 - 5.10 mg/dL [facility] Blood 08/19/2024 1:14 PM CDT 08/19/2024 1:14 PM CDT Kavon Lynn MD LAB POCT ORDERABLES - DEVICE Fin al Result SNE[facility] [address] [facility] [place] [address] * C. difficile testing Stool (08/11/2024 7:29 AM CDT) C. diff result See Comment Negative, DNA Comment:Formed stool -Testin g not performed. C. diff interp See Comment SNE[facility] JAMES Comment:Formed stool -Testin g not performed. Stool 08/11/2024 7:29 AM CDT 08/11/2024 9:49 AM CDT Kavon Lynn MD LAB MICROBIOLOGY - GENERAL ORDER SAM Final Result Performing Organization Address [facility] Co de Phone Number [address] [address] * Lactoferrin, Fecal (08/11/2024 7:29 AM CDT) Lactoferrin, fecal Negative Negative Stool 08/11/2024 7:29 AM CDT 08/11/2024 9:49 AM CDT Kavon Lynn MD LAB BODY FLUIDS AND STOOLS ORDER SAM Final Result Performing Organization Address [facility] de Phone Number [address] [address] * Cryptosporidium and Giardia antigen assay Stool (08/11/2024 7:29 AM CDT) Giardia Ag Negative Negative Comment:Testing performed by : [facility], [address] [facility] [place]., [address] Cryptosporidium Ag Negative Negative SNEHA Comment: Interpretive data: Testing performed by the [facility] using an immunoassay that detects Cryptosporidium and Giardia antigens in stool specimens. If comprehensive examination for ova and parasites is required, please request Ova and Parasite Examination . Testing performed by: [facility], [address] [facility], [place]., [address] Stool 08/11/2024 7:29 AM CDT 08/11/2024 2:17 PM CDT Kavon Lynn MD LAB MICROBIOLOGY - GENERAL ORDER SAM Final Result Performing Organization Address [facility] Co de Phone Number [address] [place] [address] * Pancreatic elastase, stool (08/11/2024 7:29 AM CDT) Pancreatic elastase, stool 246 >200 (Normal) mcg/g Jeannette ref Lab Comment: Test Performed by: [facility] [address] [id number] High School Sports Coach: Vijay Francisco Ph.D.; CLIA# [id number] Stool 08/11/2024 7:29 AM CDT 08/11/2024 9:49 AM CDT Kavon Lynn MD LAB BODY FLUIDS AND STOOLS ORDER SAM Final Result SNEHA [facility] [place] [address] [facility] Lab * Stool culture Stool Rectum (08/11/2024 7:29 AM CDT) Pathologist [facility] Direct Specimen Exam Shiga Toxin Testing: Antigen detection assay for Shiga-toxin NEGATIVE for Shiga Toxin 1 and Shiga Toxin 2. Comment:Testing performed by : [facility], [address] [place]., [address] Report Final Report: No growth of enteric bacterial pathogens SNEHA Comment:Testing performed by : [facility], [address] [place] [address]., [address] Stool (Rectum) 08/11/2024 7: 29 AM CDT 08/11/2024 2:17 PM CDT Narrative SNEHA - 08/15/2024 11:24 AM CDT Testing performed by [facility] Microbiology Laboratory ([phone]). Routine stool cultures include procedures to detect Salmonella, Shigella, Edwardsiella, Aeromonas, Pleisiomonas, Campylobacter, Yersinia, E. coli O157, and Shiga-like toxins. Vibrio is cultured only upon special request. If Vibrio is suspected, please call the laboratory at [phone]. Interpretive data was last updated October 09, 2016. Kavon Lynn MD LAB MICROBIOLOGY - GENERAL ORDER SAM Final Result [facility]NEHA JAMES [address] [facility] [place] [address] * Immunoglobulin G subclass 4 (08/06/2024 12:56 PM MANAGER HEART) Immunoglobulin G Subclass 4 27.0 4.0 - 86.0 mg/dL [facility] [facility] Blood 08/06/2024 12:5 6 PM MANAGER HEART 08/06/2024 12:58 PM MANAGER HEART Kavon Lynn MD LAB BLOOD ORDERABLES Final Resul t Performing Organization Address [facility] de Phone Number [facility] [facility] [address] [place] [address] * Filaria Antibody, IgG4 (08/05/2024 2:40 PM MANAGER HEART) Pathologist [facility] Filaria ab, IgG4 0.[address] [facility]/[employer] [facility], Comment: REFERENCE RANGE: <2.50 INTERPRETIVE CRITERIA: <2.50 [...] analytical performance characteristics have been determined by [employer]. It has not been cleared or approved by the U.S. Food and Drug Administration. This assay has been validated pursuant to the CLIA regulations and is used for clinical purposes. 08/05/2024 2:40 PM MANAGER HEART 08/05/2024 2:40 PM MANAGER HEART Kavon Lynn MD LAB BLOOD ORDERABLES Final Resul t SHAUN [employer]/[facility], [address] [place] [address] * (ABNORMAL) eGFR (08/05/2024 2:06 PM MANAGER HEART) eGFR 34(L) >=60 mL/min/1. 73 m2 Comment: [...] last reviewed 2021. Blood 08/05/2024 2:06 PM MANAGER HEART 08/05/2024 2:29 PM MANAGER HEART Kavon Lynn MD LAB BLOOD ORDERABLES Final Resul t [facility]OR[facility]HA [address] [facility] [place] [address] * Differential, auto (08/05/2024 2:06 PM MANAGER HEART) Neutrophil abs 4.2 1.5 - 6.5 K/cumm Imm gran abs 0.0 0.0 - 0.1 K/cumm [facility] Lymphocyte abs 1.1 0.8 - 3.3 K/cumm [facility] Monocyte abs 0.7 0.2 - 0.8 K/cumm [facility] Eosinophil abs 0.2 0.0 - 0.5 K/cumm [facility] Basophil abs 0.1 0.0 - 0.1 K/cumm [facility] Neutrophil pct 68.3 % [facility] Comment: Interpretive Data Percent cell count reference ranges are not reported, since discordance with absolute values may lead to misinterpretation of CBC data. Current Interpretive Data was last revised on 2017. Imm gran pct 0.3 % [facility] Comment: Interpretive Data Percent cell count reference ranges are not reported, since discordance with absolute values may lead to misinterpretation of CBC data. Current Interpretive Data was last revised on 2017. Lymphocyte pct 17.2 % [facility] Comment: Interpretive Data Percent cell count reference ranges are not reported, since discordance with absolute values may lead to misinterpretation of CBC data. Current Interpretive Data was last revised on 2017. Monocyte pct 10.5 % [facility] Comment: Interpretive Data Percent cell count reference ranges are not reported, since discordance with absolute values may lead to misinterpretation of CBC data. Current Interpretive Data was last revised on 2017. Eosinophil pct 2.9 % [facility] Comment: Interpretive Data Percent cell count reference ranges are not reported, since discordance with absolute values may lead to misinterpretation of CBC data. Current Interpretive Data was last revised on 2017. Basophil pct 0.8 % [facility] Comment: Interpretive Data Percent cell count reference ranges are not reported, since discordance with absolute values may lead to misinterpretation of CBC data. Current Interpretive Data was last revised on 2017. Blood 08/05/2024 2:06 PM MANAGER HEART 08/05/2024 2:29 PM MANAGER HEART us Kavon Lynn MD LAB BLOOD ORDERABLES Final Resul t SNEHA JAMES [address] [facility] [place] [address] * (ABNORMAL) CBC with auto differential (08/05/2024 2:06 PM MANAGER HEART) WBC 6.2 3.8 - 9.9 K/cumm Hgb 12.3 11.9 - 15.5 g/dL [facility] Hct 38.9 35.6 - 45.5 % [facility] Plt 346 150 - 400 K/cumm [facility] MPV 9.6 9.1 - 12.3 fL [facility] RBC 4.28 3.90 - 5.20 M/cumm [facility] MCV 90.9 81.3 - 96.4 fL [facility] MCH 28.7 27.1 - 33.3 pg [facility] MCHC 31.6(L) 32.3 - 35.7 g/dL [facility] RDW CV 13.1 11.1 - 14.9 % [facility] RDW SD 43.2 35.7 - 48.1 fL [facility] NRBC abs 0.00 0.00 - 0.01 K/cumm [facility] Blood 08/05/2024 2:06 PM MANAGER HEART 08/05/2024 2:29 PM MANAGER HEART Kavon Lynn MD LAB BLOOD ORDERABLES Final Resul t Performing Organization Address [facility] Hospital/[facility] de Phone Number [address] [place] [address] * Gliadin antibody, IgA (08/05/2024 2:06 PM MANAGER HEART) Anti-gliadin, IgA <0.5 <=14.9 units/mL Comment: Interpretive data Negative: <15 units/mL Positive: > or equal to 15 units/mL Current interpretive data was last revised on 2016. Testing performed by: [facility], [address] [facility], [place]., [address] Blood 08/05/2024 2:06 PM MANAGER HEART 08/05/2024 6:57 PM MANAGER HEART Kavon Lynn MD LAB BLOOD ORDERABLES Final Resul t Performing Organization Address [facility] Co de Phone Number [address] [place] [address] * Tissue transglutaminase IgA (TGG-IgA Ab) (08/05/2024 2:06 PM MANAGER HEART) TTG ab, IgA <0.5 <=14.9 units/mL Comment: Interpretive data Negative: <15 units/mL Positive: > or equal to 15 units/mL Current interpretive data was last revised on 2016. Testing performed by: [facility], [address] [place]., [address] Blood 08/05/2024 2:06 PM MANAGER HEART 08/05/2024 6:57 PM MANAGER HEART us Kavon Lynn MD LAB BLOOD ORDERABLES Final Resul t Performing Organization Address [facility] Co de Phone Number [address] [place] [address] * (ABNORMAL) Erythrocyte sedimentation rate (08/05/2024 2:06 PM MANAGER HEART) Pathologist [facility] Erythrocyte sedimentation rate 52(H) 1 - 30 mm/hr Blood 08/05/2024 2:06 PM MANAGER HEART 08/05/2024 2:29 PM MANAGER HEART us Kavon Lynn MD LAB BLOOD ORDERABLES Final Resul t Performing Organization Address [facility] Co de Phone Number [address] [place] [address] * (ABNORMAL) CRP (acute phase) (08/05/2024 2:06 PM MANAGER HEART) Pathologist [facility] CRP 10.1(H) <=10.0 mg/L Blood 08/05/2024 2:06 PM MANAGER HEART 08/05/2024 2:29 PM MANAGER HEART us Kavon Lynn MD LAB BLOOD ORDERABLES Final Resul t Performing Organization Address [facility] Co de Phone Number [address] [place] [address] * (ABNORMAL) Comprehensive metabolic panel (08/05/2024 2:06 PM MANAGER HEART) Sodium 141 135 - 145 mmol/L Potassium, pl 3.7 3.3 - 4.9 mmol/L [facility] Chloride 103 97 - 110 mmol/L [facility] CO2 25 22 - 32 mmol/L [facility] Anion gap 13 2 - 15 mmol/L [facility] BUN 17 6 - 25 mg/dL [facility] Creatinine 1.58(H) 0.60 - 1.10 mg/dL [facility] Glucose 108 70 - 199 mg/dL [facility] Comment: Interpretive Data Fasting glucose >/= 126 [...] classification and Diagnosis of Diabetes Diabetes Care 2021; 46: S19-S40. Current interpretive data was last revised 2022. Calcium 9.6 8.5 - 10.3 mg/dL [facility] Bilirubin, total 0.6 0.1 - 1.2 mg/dL [facility] Protein, pl 8.3 6.5 - 8.5 g/dL [facility] Albumin 4.3 3.5 - 5.0 g/dL [facility] Alk phos 143(H) 40 - 130 Units/L [facility] ALT 15 7 - 45 Units/L [facility] AST 20 10 - 45 Units/L [facility] Blood 08/05/2024 2:06 PM MANAGER HEART 08/05/2024 2:29 PM MANAGER HEART us Kavon Lynn MD LAB BLOOD ORDERABLES Final Resul t [facility] [address] [facility] [place] [address] from Last 3 Months Insurance Advance Directives For more information, please contact: [phone] * LIMITED - No CPR (Latest Code Status on File) Date Activated Date Inactivated Comments 10/29/2022 3:51 PM 10/31/2022 7:06 PM * Full Code Date Activated Date Inactivated Comments 10/29/2022 2:19 PM 10/29/2022 3:51 PM * Full Code Date Activated Date Inactivated Comments 09/12/2021 7:50 AM 09/15/2021 4:05 PM Care Teams Green Building Architect Relationship Specialty Start Date End Date Hawa Carmichael NP [address] [facility] [address] [place] [address] PCP - General Family Medicine 08/25/24
--- OUTSIDE RECORDS SUMMARY | 2024-10-21 14:33 | XMS_ITS ---
Author Organization [facility] Address [address] [place] [address] Phone Care Team Providers Care Stenotypist Name Role Phone Devan Mckeon MD Primary Care Provider [phone] Active Problems Patient Care Coordination No te Formatting of this note migh t be different from the original. 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 2021 Bilateral malignant neoplasm of overlapping sites of breast in female 02/09/2016 Overview (10/19/2016): RIGHT, UOQ Stage: Clinical T1 N0; pT1a N0 Date of diagnosis: 02/03/16 Diagnosis: right 0.1 cm grade I IDC 0/2 LN ER(+) NM(+) HER2 (-) Ki-67 - 10.9% LEFT, UIQ Stage: Clinical T1 N0; pT2 N0 Date of diagnosis: Diagnosis: left 2.2 cm Grade I IDC 0/2 LN ER(+) NM(+) HER2 (-) Ki-67 - 15.8% Oncotype-Dx score: 3 Medical oncologist- Raj Endocrine: 2.5mg Letrozole BREAST CANCER TREATMENT SUMMARY AND SURVIVORSHIP PLAN Patient name: Aline Falbe Patient Patient : 1950 CARE TEAM Medical oncologist: Dr Neeraj Anthony Surgeon: Dr Maya Cornejo Primary care physician: Dr Devan Mckeon DRY KILN BURNER: Dr Gunjan Rodriguez TREATMENT SUMMARY Diagnosis date: [...] POSITIVE-01/09 Estrogen: POSITIVE-01/09 Progesterone: POSITIVE-01/09 Progesterone: POSITIVE-01/09 Igt1Uxx: NEGATIVE Qdk2Fjt: NEGATIVE Ki-67: 10.9% Ki-67: 15.8% 02/14/16: MRI [...] other tests as indicated on each visit PRENATAL GENETIC COUNSELOR -Continue your yearly visit. *Physical exam and other tests (Pap test) as indicated on each visit. Possible late and/or mcfp affects that someone with this type of [...] also good for overall health. REFERRALS [x] [facility] Integrative Therapy [] [facility] the [facility] [] Other (Specify): ADDITIONAL RESOURCES Patients may have many questions and concerns after their cancer treatment ends. A list of local resources as provided below to assist you. Nery cancer information [place]: [place] [employer] (ACS): www.acs.org National Cancer [place] (NCI): www.cancer.gov [place] [employer] Society of clinical oncology (ASCO): www.cancer.net Komen: www.CatchFree.Paktor Livestrong: Adly.3DLT.com Radiation therapy: www.rtanswers.org Patient signature: Aline_Felibertobe M.Angel/EDDY/RN signature: Eden Brooke RN BSN Date delivered on: 08/18/2016 Surgeon: Clemente Surgery: 04/10/16 bilateral TM/SLN Medical Oncologist: Chemotherapy: Radiation: none Hormonal therapy: Breast mass, left 02/03/2016 Overview (02/03/2016): For core biopsy Current Treatment and Therapy Plans No current plan information found. Past Treatment and Therapy Plans No past plan information found. Lifetime Dose Tracking * Chemical Lifetime Dose Automatic Entry Manual Entr y Effective Dose 16.2 mSv 16.2 mSv 0 mSv Total DLP 905 DLP 905 DLP 0 DLP CTDIvol Max 13.6 mGy 13.6 mGy 0 mGy CTDIvol Min 13.6 mGy 13.6 mGy 0 mGy Resolved Problems Problem Noted Date Diagnosed Date Resolved Date Abnormal mammogram 01/24/2016 2
--- OUTSIDE RECORDS SUMMARY | 2024-10-21 14:33 | XMS_ITS ---
Author Organization [facility] Address [address] [facility] [address] [place] [address] Care Team Providers Care Terrazzo Mechanic Name Role Phone Mike GARRETT, Devan Primary Care Provider Thelma GUTHRIE NP, REHANA Philip ALLERGIES Allergen (clinical drug ingredient) Drug/Non Drug Allergy documented on EMR Reaction Allergy Type Onset Date Status sulfacetamide Sulfacetamide hives Drug Allergy Active REASON FOR VISIT Abd Pain MEDICATIONS Medication SIG (Take, Route, Frequency, Duration) Notes Start Date End Date Status Lisinopril 40 MG 1 tablet Orally Once a day Active Metoprolol Succinate 50 MG 1 capsule Ora lly Once a day Active hydrALAZINE HCl 50 MG 1 tablet with food Orally Three times a day Active Pantoprazole Sodium 40 MG 1 tablet Orall y Once a day Active amLODIPine Besylate 10 MG 1 tablet Orall y Once a day Active Meloxicam 7.5 MG 1 tablet Orally Once a day Active VITAL SIGNS Blood pressure systolic 134 mm Hg 12/14/19 24 Blood pressure diastolic 79 mm Hg 024 Heart Rate 74 /min 12/14/2023 Height 65.5 in 12/14/2023 Weight 206 lbs 12/14/2023 BMI 33.76 kg/m2 12/14/2023 Encounters Encounter Location Date Provider Diagnosis [facility] [address] [place] [address] 12/14/2023 REHANA GUTHRIE Other chronic pancreatitis K86.1 ASSESSMENTS Encounter Date Diagnosis Assessment Notes Treatment Notes Treatment Clinical Notes Section Notes 12/14/2023 Other chronic pancreatitis (ICD-10 - K86.1) educated on importance of low fat diet samples of Creon 36k given at this time to help [...] of compliance with plan. PLAN OF TREATMENT Treatment Notes Assessment Notes Other chronic pancreatitis educated on importance of low fat diet samples of Creon 36k given at this time to help if complaints occur, discussed placing herself on a clear liquid diet will follow up in office as needed Other Time spent: 20minute s. More than 50% spent reviewing diagnostic results, compliance with current medical therapy, counseling patient on low fat diet, weight reduction to normal BMI, normal BMI discussed, avoidance of ETOH/tobacco products, discussing treatment options. Have discussed details of EUS and/or ERCP procedure including indications/risks/expected outcomes/limitations/possible medication side effects, and alternatives to procedure. All questions answered and patient expresses understanding. No contraindications noted. Instructed patient regarding management plan, follow-up visits, and stressed importance of compliance with plan. Next Appt Details Follow Up: prn, Reason: Progress Notes * Aline HEIN LDOB: (73 yo F)Acc No.[id number]:12/14/2023 Progress Notes Patient: Aline HEIN Appointment Provider: Rehana Guthrie CNP :1950 Age:73 Y Sex:Female Date:12/14/2023 Address:[facility] [address] [facility] Pcp:Devan Mckeon MD Subjective: * Chief Complaints: * 1. Abd Pain. * HPI: Constitutional: Pleasant 71 year old female with history of cholecystectomy, dyslipidemia, HTN, GERD, murmur, IBS, and breast CA, and previous ERCP with Dr Louis 07/19/16 presents today with complaints of extreme right sided abdominal pain that made her present to [facility] ED on 09/05/21 and diagnosed with pancreatitis. She also had this in February. She states that this last time she was eating a bag of potato chips and began to have the worst pain she has ever had in her life. She was presented to the ED and admitted, given fluids and pain medication and discharged. She states that she is feeling better and not really having anymore abdominal pain. No complaints of nausea/vomiting. She states that her heartburn is a little more increased. She also states that during her stay at the ED that her biopsy returned with breast cancer again. She is following with the [facility] for this. P revious testin Labs: WBC 14.0, AST 47,ALT 56, Alk Phos 173, Lipase 6819 CT scan showed acute uncomplicated pancreatitis. Moderate sized hiatal hernia. CT scan diffuse pancreatic and peripancreatic inflammatory fat stranding suggesting acute pancreatitis. No pseudocyst. No nephrolithiasis. No bowel obstruction. ERCP Aliperti showed recurrent papillary stenosis had resolved after recent extension of previous (2013) biliary/pancreatic sphincterotomies, the PD stent has been removed. Persistent distortion of the biliary angle of drainage, the BD stent has been downsized in diameter and upsized in length to attempt training a less acute angle of drainage during healing. On the BD stent and residual bile duct sludge was removed and papillary stenosis had resolved. - UPDATE 12/14/23 Randolph bunn presents today as last week she was having complaints of abdominal pain, mild nausea and diarrhea. She states that after she ate a larger meal she began having complaints of pain in her epigastric region. She had nausea with no vomiting and had a few loose stools the following day. She states that she placed herself on a clear diet and her complaints slowly resolved. She did admit that she is not very strict with her diet and that she overindulges at times. She currently is doing well with no GI complaints. S he is s/p ERCP with Dr Louis on 09/12/21 that showed papillary stenosis treated with biliary and pancreatic sphincterotomies as well as dual duct stenting that was performed and removed on 09/14 with excellent drainage noted. She did present back to [facility] ED in October of 2022 with complaints of severe abdominal pain and lipase was noted at 2891. She was admitted for two days and managed with fluids. * ROS: Gastrointestinal: Denies Abdominal pain. Denies Blood in stool. Denies Change in bowel habits. Denies Colitis, denies. Denies Constipation. Denies Decreased appetite. Denies Diarrhea. Denies Difficulty swallowing. Denies Exposure to hepatitis. Denies Heartburn. Denies Hematemesis. Denies Hepatitis, denies. Denies Nausea. Denies Rectal bleeding. Denies Stomach problems, denies. Denies Vomiting. Denies Weight loss. * Medical History: Breast cancer, HTN, Osteoarthritis, Hep A, Hyperlipidemia, GERD, MVP, IBS, Hemorrhoids, Anemia, Functional heart murmur, Neuropathy, Histoplasmosis. * Surgical History: colonoscopy Dr Cannon - normal 05/13/10, EGD Dr. Guallpa - moderately sized hiatal hernia, esophagel dilatation performed 08/23/12, ERCP Dr Louis - severe papillary stenosis treated with ANDREEA, stents placed and removed 09/12/12 09/09/12, EUS Dr. Duval- enlarged and abnormal mediastinal nodes, FNA without evidence of malignancy 09/26/12, 24 hr motility/ph monitoring, abnormal esophagel body peristalsis, hypotensive LES, small hiatus hernia, elevated post swallow residual at UES, ph with normal acid exposure 07/17/13, EGD Dr. guallpa - small hiatus hernia, emperic dilatation performed 08/13/13, EUS Dr duval - normal pancreas and EGD 04/27/14, EGD Dr. Chacko - 3cm hiatal hernia, gastric erythema. neg H. pylori, mild chronic inflammation, mild acute, chronic duodenitis 11/25/14, ERCP Dr Louis - papillary stenosis s/p biliary and pancreatic sphincterotomies and stenting. PD stent removed 07/21/16, BD stent downsized, stent removed with residual bile duct sludge 10/05/16 07/19/16, colonoscopy Aliperti- diverticulosis, int hemorrhoids 11/11/20, ERCP Aliperti- PS treated with bili/panc sphincterotomies, dual duct stenting performed and removed on 09/1409/12/21. * Family History: Non-Contributory. * Social History: Tobacco Use: Do you smoke?: Never. * Medications: Taking Meloxicam 7.5 MG Tablet 1 tablet Orally Once a day , Taking hydrALAZINE HCl 50 MG Tablet 1 tablet with food Orally Three times a day , Taking Lisinopril 40 MG Tablet 1 tablet Orally Once a day , Taking Metoprolol Succinate 50 MG Capsule ER 24 Hour Sprinkle 1 capsule Orally Once a day , Taking Pantoprazole Sodium 40 MG Tablet Delayed Release 1 tablet Orally Once a day , Taking amLODIPine Besylate 10 MG Tablet 1 tablet Orally Once a day * Allergies: Sulfacetamide: hives - Allergy. Objective: * Vitals: HR:74/min, BP:134/79mm Hg, Wt:206lbs, BMI:33.76Index, Ht: 65.5 in, Ht-cm: 166.37 cm, Wt-k.44 kg. * Examination: General Examination: GENERAL APPEARANCE: in no acute distress, well developed, well nourished. HEART: no murmurs, regular rate and rhythm, S1, S2 normal. LUNGS: clear to auscultation bilaterally. ABDOMEN: normal, bowel sounds present, soft, nontender, nondistended. NEUROLOGIC: alert and oriented, sensory exam intact. present. Assessment: * Assessment: 1. Other chronic pancreatitis - K86.1 (Primary) Plan: * Treatment: 2. Others Notes: Time spent: 20minutes. More than 50% spent reviewing diagnostic results, compliance with current medical therapy, counseling patient on low fat diet, weight reduction to normal BMI, normal BMI discussed, avoidance of ETOH/tobacco products, discussing treatment options. Have discussed details of EUS and/or ERCP procedure including indications/risks/expected outcomes/limitations/possible medication side effects, and alternatives to procedure. All questions answered and patient expresses understanding. No contraindications noted. Instructed patient regarding management plan, follow-up visits, and stressed importance of compliance with plan. * Follow Up: prn * Images: * Sign off status: Completed true * Appointment Provider: Rehana Guthrie CNP Date: 12/14/2023 History and Physical Notes * HPI (History of Present Illness) Category Sub-Category Detail Notes Category Not es Constitutional Pleasant 71 year old female with history of cholecystectomy, dyslipidemia, HTN, GERD, murmur, IBS, and breast CA, and previous ERCP with Dr Louis 07/19/16 presents today with complaints of extreme right sided abdominal pain that made her present to [facility] ED on 09/05/21 and diagnosed with pancreatitis. She also had this in February. She states that this last time she was eating a bag of potato chips and began to have the worst pain she has ever had in her life. She was presented to the ED and admitted, given fluids and pain medication and discharged. She states that she is feeling better and not really having anymore abdominal pain. No complaints of nausea/vomiting. She states that her heartburn is a little more increased. She also states that during her stay at the ED that her biopsy returned with breast cancer again. She is following with the [facility] for this. Previous testin09/05/21 Labs: WBC 14.0, AST 47,ALT 56, Alk Phos 173, Lipase 6819 09/05/21 CT scan showed acute uncomplicated pancreatitis. Moderate sized hiatal hernia. 02/02/21 CT scan diffuse pancreatic and peripancreatic inflammatory fat stranding suggesting acute pancreatitis. No pseudocyst. No nephrolithiasis. No bowel obstruction. 07/21/16 ERCP Missy showed recurrent papillary stenosis had resolved after recent extension of previous (2013) biliary/pancreatic sphincterotomies, the PD stent has been removed. Persistent distortion of the biliary angle of drainage, the BD stent has been downsized in diameter and upsized in length to attempt training a less acute angle of drainage during healing. On the BD stent and residual bile duct sludge was removed and papillary stenosis had resolved. -----UPDATE 12/14/23 Olivia presents today as last week she was having complaints of abdominal pain, mild nausea and diarrhea. She states that after she ate a larger meal she began having complaints of pain in her epigastric region. She had nausea with no vomiting and had a few loose stools the following day. She states that she placed herself on a clear diet and her complaints slowly resolved. She did admit that she is not very strict with her diet and that she overindulges at times. She currently is doing well with no GI complaints. She is s/p ERCP with Dr Louis on 09/12/21 that showed papillary stenosis treated with biliary and pancreatic sphincterotomies as well as dual duct stenting that was performed and removed on 09/14 with excellent drainage noted. She did present back to [facility] ED in October of 2022 with complaints of severe abdominal pain and lipase was noted at 2891. She was admitted for two days and managed with fluids. Examination Category Sub-Category Detail Notes Category Not es General Examination GENERAL APPEARANCE: in no ac natividad distress, well developed, well nourished present HEART: no murmurs, regular rate and rhythm, S1, S2 normal LUNGS: clear to auscultatio n bilaterally ABDOMEN: normal, bowel sounds present, soft, nontender, nondistended NEUROLOGIC: alert and oriented, sensory exam intact
[2024-10-21 14:49] LABS: Basophils Absolute Auto 0.1 K/mm3 (0.0-0.1); Basophils Percent Auto 0.9 % (0.2-1.2); Eosinophils Absolute Auto 0.2 K/mm3 (0-0.3); Eosinophils Percent Auto 2.3 % (0-4.4); Hematocrit 35.7 % (37.0-47.0); Hemoglobin 11.5 g/dL (12.0-15.0); Immature Granulocyte Absolute 0.03 K/mm3 (0.00-0.031); Immature Granulocyte Percent A 0.5 % (0-0.5); Lymphocytes Absolute Auto 0.98 K/mm3 (0.9-3.2); Lymphocytes Percent Auto 14.8 % (18.3-44.2); Mean Corpuscular HGB Conc 32.2 g/dl (32-36); Mean Corpuscular Hemoglobin 28.9 pg (26-34); Mean Corpuscular Volume 89.7 fl (80-100); Monocytes Absolute Auto 0.7 K/mm3 (0.1-0.6); Monocytes Percent Auto 11.1 % (2.6-8.5); Neutrophils Absolute Auto 4.7 K/mm3 (1.3-6.7); Neutrophils Percent Auto 70.4 % (45.5-73.1); Platelet Count Result 332 k/mm3 (150-375); Red Blood Count 3.98 M/mm3 (4.2-5.4); Red Cell Distribution Width 13.6 % (11.5-14.5); White Blood Count 6.6 K/mm3 (4.5-10.0)
[2024-10-21 16:30] LABS: Alanine Aminotransferase 20 U/L (6-35); Albumin Level 4.3 g/dL (3.5-5.1); Alkaline Phosphatase 120 U/L (38-126); Anion Gap 12 mmol/L (4-12); Aspartate Amino Transferase 34 U/L (14-36); Bilirubin,Total 0.5 mg/dL (0.2-1.3); Blood Urea Nitrogen 24 mg/dL (7-17); Calcium 9.1 mg/dL (8.4-10.2); Carbon Dioxide 23 mmol/L (22-30); Chloride 106 mmol/L (98-107); Estimated Glomerular Filt Rate 45; Glucose 126 mg/dL (65-110); Sodium 141 mmol/L (137-145)
[2024-10-23 09:33] LABS: CA 15-3 18 U/mL (<32)
== END 2024-10-21 14:31 | disposition home or self-care (01) ==
PROVIDERS: PCP Family Medicine Sports Medicine; Visit Provider Internal Medicine Hematology & Oncology
DX: C50.811 Malignant neoplasm of overlapping sites of right female breast (principal); C50.812 Malignant neoplasm of overlapping sites of left female breast; Z17.0 Estrogen receptor positive status [ER+]
CPT/HCPCS: 36415; 80053; 85025; 86300

== ENCOUNTER 2024-11-13 08:14 | Outpatient (CLI) | payer MEDICARE, SELFPAY ==
--- NOTE | ~2024-11-13 | DEXA_ITS ---
Bone Density Report Name: INGRID HEIN Age: 74 Sex: Female Ethnicity: White Date of : 1950 Indication: postmenopausal; screening for osteoporosis; height loss; prior fracture; cancer; Referring Provider: JAMI JACOBS Study: Bone densitometry was performed. Exam Date: November 13, 2024 Accession number: [id number] Bone Density: Region BMD T-score Z-score Classification AP Spine(L1-L4) 0.940 -1.0 1.3 Normal Femoral Neck (Right) 0.739 -1.0 1.0 Normal Total Hip (Right) 0.862 -0.7 1.0 Normal World Health Organization criteria for BMD impression classify patients as: Normal (T-score at or above -1.0), Osteopenia (T-score between -1.0 and -2.5), or Osteoporosis (T-score at or below -2.5). 10-year Fracture Risk: FRAX not reported because: All T-scores for Spine Total, Hip Total, Femoral Neck at or above -1.0 Prior hip or vertebral fracture Treated for osteoporosis Clinical Information Provided by Patient: Have had a previous hip or vertebral fracture Has had a low trauma fracture Is being treated for osteoporosis Has used the following medications: Fosamax (i.e. alendronate), Vitamin D, Calcium Has the following medical conditions: Cancer Patient maximum height was 65.5 Menopause Age: 38 No regular weight bearing exercise Does not regularly consume dairy products Onset of menses at age 13 Number of children 3 Impression: The patient has normal bone mass. The patient has risk factors, including: previous fracture. Discussion: It is important to ask patients whether they are taking their medications and to encourage continued and appropriate compliance with their osteoporosis therapies to reduce fracture risk. It is also important to review their risk factors and encourage appropriate calcium and vitamin D intakes, exercise, fall prevention and other lifestyle measures. Follow-Up: Consider a repeat BMD and Vertebral Fracture Assessment (VFA) exam in 2 years or sooner if medically necessary, to reassess this patient's status. Reported by: RAJESH on 11/13/2024 8:48:00 AM. Reviewed, dictated and finalized at location A.
--- OUTSIDE RECORDS SUMMARY | 2024-11-13 08:21 | XMS_ITS | Patient Health Record ---
Author Organization [facility] Address [address] [place] [address] Care Team Providers Care Commercial Designer Name Role Phone Mike GARRETT, Devan Primary Care Provider Thelma GUTHRIE NP, LOAN Philip [phone] Allergies Allergen (clinical drug ingredient) Drug/Non Drug Allergy documented on EMR Reaction Allergy Type Onset Date Status sulfacetamide Sulfacetamide hives Drug Allergy Active Reason For Referral No Information Medications Medication SIG (Take, Route, Frequency, Duration) Notes [...] tablet Orall y Once a day Active Problems Problem Type SNOMED Code ICD Code Onset Dates Problem Status W/U Status Risk Notes Problem Other chronic pancreatitis (K86.1) Active confirmed Vital Signs Heart Rate 74 /min 12/14/2023 Blood pressure diastolic 79 mm Hg 12/14/2023 Height 65.5 in 12/14/2023 Blood pressure systolic 134 mm Hg 12/14/2023 Weight 206 lbs 12/14/2023 BMI 33.76 kg/m2 12/14/2023 Encounters Encounter Location Date Provider Diagnosis [facility] [address] [place] [address] 12/14/2023 LOAN GUTHRIE Other chronic pancreatitis K86.1 Assessments Encounter Date Diagnosis (ICD Code) Assessment Notes Treatment Notes Treatment Clinical Notes [...] and stressed importance of compliance with plan. Plan Of Treatment Pending Test Test Name Order Date Endoscopic Retrograde Cholangiopancreato graphy (ERCP) 09/09/2021 Insurance Providers Payer Name Payer Address Payer Phone Subscriber Number Group Number Insured Name Patient Relationship to Insured Coverage Start Date Coverage End Date [employer] HMO-POS [address] [address] [place], [place] [id number] Aline Grant Self - patient is the insured Medical (General) History Medical History History ICD Code breast cancer [...] hemorrhoids 11/11/20 ERCP Aliperti- PS treated wi bili/panc sphincterotomies, dual duct stenting performed and removed on 09/1409/12/21
--- OUTSIDE RECORDS SUMMARY | 2024-11-13 08:21 | XMS_ITS | Referral Summary ---
Author Organization [facility] Address [address] [place] [address] Care Team Providers Care Diesel Automotive Technician Name Role Phone Hawa Carmichael EDDY Primary Care Provider Encounters Date Type Department Care Team Description 11/06/2024 Orders Only [facility] Gastroenterology at [address] [place] [phone] Kavon Lynn MD Gastroesophageal reflux disease without esophagitis 08/20/2024 Results Follow-Up [facility] Gastroenterology at [address] [place] [phone] Kavon Lynn MD Surgical pathology 08/20/2024 Documentation [facility] Gastroenterology at [address] [place] [address] Kavon Lynn MD 08/19/2024 1:45 PM CDT Anesthesia Event [facility] [address] [place] [address] Renee Galvez MD Lee, Walter, MD 08/19/2024 1:30 PM CDT - 08/19/2024 2:00 PM CDT Surgery [facility] [address] [place] [address] Kavon Lynn MD COLON BIOPSY 08/19/2024 12:12 PM CDT - 08/19/2024 3:20 PM CDT Hospital Encounter [facility] [address] [place] [address] Kavon Lynn MD Acute pancreatitis, unspecified complication status, unspecified pancreatitis type; Diarrhea, unspecified type; Gastroesophageal reflux disease without esophagitis Discharge Disposition: Discharge to home or self care 08/15/2024 Orders Only [facility] Gastroenterology at [address] [place] [phone] Kavon Lynn MD Acute pancreatitis, unspecified complication status, unspecified pancreatitis type (Primary Dx); Diarrhea, unspecified type; Gastroesophageal reflux disease without esophagitis 08/14/2024 Telephone [facility] Gastroenterology at [address] [place] [address] Kavon Lynn MD from Last 3 Months Allergies Active Allergy [...] (three) times a day 2 Active lisinopriL (PRINIVIL,ZESTR IL) 20 mg tablet Take 1 tablet (20 [...] Take 1 capsule by mouth daily Active predniSONE (DELTASONE) 50 mg tabletIndicatio ns:Allergy, subsequent encounter Take 1 tab (50 mg total) 13 hours, 1 tab (50 mg total) 7 hours, and 1 (50 mg total) hour prior to exam. 3 tablet 5 Active Additional Information Patient not taking.Reported on 08/19/2024 diphenhydrAMINE (BENADRYL) 50 mg capsuleIndicati ons:Allergy, subsequent encounter Take 1 tab (50 mg [...] mg total) by mouth daily 5 Active famotidine (PEPCID) 40 mg tabletIndicatio ns:Gastroesopha geal reflux disease without esophagitis Take 1 tablet (40 mg total) by mouth nightly as needed for heartburn 30 tablet 3 5 Active famotidine (PEPCID) 40 mg tabletIndicatio ns:Gastroesopha geal reflux disease without esophagitis Take 1 tablet (40 mg total) by mouth nightly as needed for heartburn 30 tablet 3 5 025 Discontin ued(Reord er) Active Problems Problem Noted Date Diagnosed Date Gastroesophageal reflux disease without esophagi tis 08/15/2024 Diarrhea 08/05/2024 Assessment & Plan (08/05/2024 1:23 PM METER SUPERVISOR): Chronic diarrhea after meals, 2-3 loose to [...] 09/13/2021 Assessment & Plan (08/05/2024 1:23 PM METER SUPERVISOR): Chronic GERD, not well-controlled with omeprazole 40 [...] (09/13/2021): Added automatically from request for surgery [id number] Assessment & Plan (08/05/2024 1:20 PM METER SUPERVISOR): Has had a cholecystectomy. Patient has had [...] cm grade I IDC 0/2 LN ER(+) MT(+) HER2 (-) Ki-67 - 10.9% LEFT, UIQ Stage: Clinical T1 N0; pT2 N0 Date of diagnosis: Diagnosis: left 2.2 cm Grade I IDC 0/2 LN ER(+) MT(+) HER2 (-) Ki-67 - 15.8% Oncotype-Dx score: 3 Medical oncologist- Raj Endocrine: 2.5mg Letrozole BREAST CANCER TREATMENT SUMMARY AND SURVIVORSHIP PLAN Patient name: Ingrid Grant Patient Patient : 1950 CARE TEAM Medical oncologist: Dr Neeraj Anthony Surgeon: Dr Maya Cornejo Primary care physician: Dr Devan Mckeon PROPERTY MANAGEMENT INTERN: Dr Gunjan Rodriguez TREATMENT SUMMARY Diagnosis date: [...] POSITIVE-01/09 Estrogen: POSITIVE-01/09 Progesterone: POSITIVE-01/09 Progesterone: POSITIVE-01/09 Bug6Hjd: NEGATIVE Qaa6Xvo: NEGATIVE Ki-67: 10.9% Ki-67: 15.8% 02/14/16: MRI [...] other tests as indicated on each visit YARD ENGINEER -Continue your yearly visit. *Physical exam and other tests (Pap test) as indicated on each visit. Possible late and/or keno terminal operator affects that someone with this type of [...] health. REFERRALS [x] [facility] [] [facility] Pastoral Services [facility] at the [facility] [] Other (Specify): ADDITIONAL RESOURCES Patients may have many questions and concerns after their cancer treatment ends. A list of local resources as provided below to assist you. [facility] cancer information center: [place] Cancer Society (ACS): www.acs.org National Cancer [place] (NCI): www.cancer.gov [place] Society of clinical oncology (ASCO): www.cancer.net Komen: www.komen.org Livestrong: www.Linq3tronglatakoo Radiation therapy: www.rtanswers.org Patient signature: Akin Jodee/EDDY/KAITLYNN signature: Eden Brooke RN BSN Date delivered [...] Never 09/13/2021 How often do you attend christian or latter-day serv ices? Never 09/13/2021 Do you belong to any clubs o r organizations such as christian groups, unions, fraternal or athletic groups, or [...] on file Legal Sex Female 2:51 AM METER SUPERVISOR Gender Identity Not on file Sexual Orientation [...] 12:38 PM CDT Height 165.1 cm (5' 5) 08/19/2024 12:38 PM CDT Body Mass Index 33.28 08/19/2024 12:38 PM CDT Plan of Treatment Not on file Medical Devices Implanted Type Area Purchaser Device Identifier Shelf Expiration Date Model / Serial / Lot Other - See Comments Other - see comments Left: Femur Description:Davide Patella Patella Left: Knee Screw Screw Left: Foot Explanted Type Area Purchaser Device Identifier Shelf Expiration Date Model / Serial / Lot [employer] Xavier Flexi-Stent 7fr 3cm Small Pigtail Flexible .035in Stent [id number] - [id number] Implanted:Qty : 1 on 09/12/2021 by Phan Louis MD at [facility] Explanted:Qty : 1 on 09/14/2021 by Phan Louis MD at [facility] Stent N/A: Bile Duct [employer] 01/01/2025 [id number] / / [id number] [employer] Xavier Flexi-Stent 4fr 2cm Small Pigtail Straight Flexible .025 6341 - [id number] Implanted:Qty : 1 on 09/12/2021 by Phan Louis MD at [facility] Explanted:Qty : 1 on 09/14/2021 at [facility] Stent N/A: Pancreas [employer] 04/03/2026 [id number] / / [id number] Wallflex 10mm X 60mm Fully Covered Biliary [id number] - [id number] Implanted:Qty : 1 on 09/12/2021 by Phan Louis MD at [facility] Explanted:Qty : 1 on 09/14/2021 by Phan Louis MD at [facility] N/A: Bile Duct [employer] Rosemary 05/16/2023 [id number] / / [id number] Procedures Procedure Name Priority Date/Time Associated Diagnosis [...] S, VENOUS Routine 08/19/2024 1:14 PM CDT from Last 3 Months Results * Surgical [...] Biopsy) 08/19/2024 2:06 PM CDT Narrative PATHOLOGY [facility] - 08/20/2024 6:42 PM CDT [facility] Department of Pathology [address] [place] [id number] Note to Patients: This report may contain [...] : 1950 (Age: 74) Gender: F Address: [address] [place] [id number] Hospital #: [id number] Service: Gastro Location: Patient Type: [facility] OUTPATIENT Taken: 08/19/2024 Received: 08/19/2024 [...] cm. Entirely submitted. Labeled F1. Jar 0. jjb/08/19/2024 15:00 SHRUTHI Sesay, CONNIE ([facility] Microscopic slide review and interpretation for this case was performed at [facility], Department of Surgical Pathology, [address] [facility], [place] [id number], [place] [address] CLIA # [id number] us Kavon Lynn MD LAB PATHOLOGY ORDERABLES Final R esult PATHOLOGY [facility] * EGD (08/19/2024 1:28 PM CDT) Anatomical Region Laterality Modality Other Narrative Procedure Note Kavon Lynn MD - 08/19/2024 1:28 PM CDT [facility] GI ENDOSCOPY Patient Name: Ingrid Grant Procedure Date: 08/19/2024 1:28 PM Date of : 1950 Admit Type: Outpatient Age: 74 Gender: Female Attending MD: Kavon Lynn M.D. Room: [facility] 03 Note Status: [...] On: 08/19/2024 1:28 PM Recognized by the [place] Society for Gastrointestinal Endoscopy for promoting quality in endoscopy us Kavon Lynn MD ENDOSCOPY PROCEDURES Final Resul t * Colonoscopy (08/19/2024 1:27 PM CDT) Anatomical Region Laterality Modality Other Narrative Procedure Note Kavon Lynn MD - 08/19/2024 1:27 PM CDT [facility] GI ENDOSCOPY Patient Name: Ingrid Grant Procedure Date: 08/19/2024 1:27 PM Date of : 1950 Admit Type: Outpatient Age: 74 Gender: Female Attending MD: Kavon Lynn M.D. Room: [facility] 03 Note Status: [...] The scope was passed under direct vision.The [id number] colonoscope was introduced through theanus and advanced [...] On: 08/19/2024 1:27 PM Recognized by the [place] Society for Gastrointestinal Endoscopy for promoting quality in endoscopy Kavon Lynn MD ENDOSCOPY PROCEDURES Final Resul t * (ABNORMAL) POC Blood Gas and Chemistries, Venous - (08/19/2024 1:14 PM CDT) pH,idania POC 7.53(H) 7.32 - 7.43 pCO2, idania POC 28(L) 40 - 50 mmHg [facility] pO2,idania POC 63 mmHg [facility] Comment: Interpretive Data No reference range established. Current interpretive data was last revised 2020. HCO3, idania (Calc) POC 23 20 - 30 mmol/L [facility] Base excess, idania POC 1 mmol/L [facility] Comment: Interpretive Data No reference range established. Current interpretive data was last revised 2020. Hemoglobin, idania POC 12.6 11.9 - 15.5 g/dL [facility] Hematocrit, idania POC 37.0 35.6 - 45.5 % [facility] Sodium, idania POC 139 135 - 145 mmol/L [facility] Potassium, idania POC 3.8 3.3 - 4.9 mmol/L [facility] Comment: Interpretive Data This method is not able to assess for hemolysis, which may falsely increase potassium concentrations. If further testing is needed to evaluate this result, consider in-laboratory plasma potassium. Current Interpretive Data was last revised on 2022. Glucose, idania POC 99 70 - 199 mg/dL [facility] Ionized Calcium, idania POC 4.70 4.50 - 5.10 mg/dL [facility] Blood 08/19/2024 1:14 PM CDT 08/19/2024 1:14 PM CDT us Kavon Lynn MD LAB POCT ORDERABLES - DEVICE Fin al Result [facility] [address] [facility] Department [place] [address] from Last 3 Months Insurance Member Subscriber Plan / Payer (Ef fective 2022-Present) Name:Ingrid Grant Relation to Subscriber:Self Name:Ingrid Grant Payer ID:[id number] (NAIC) Type:[facility] Address: [place] [id number] [place] [phone] [place] [phone] Advance Directives For more information, please contact: [phone] * LIMITED - No CPR (Latest Code Status on File) Date Activated Date Inactivated Comments 10/29/2022 3:51 PM 10/31/2022 7:06 PM * Full Code Date Activated Date Inactivated Comments 10/29/2022 2:19 PM 10/29/2022 3:51 PM * Full Code Date Activated Date Inactivated Comments 09/12/2021 7:50 AM 09/15/2021 4:05 PM Care Teams Diesel Automotive Technician Relationship Specialty Start Date End Date Hawa Carmichael NP [address] [address] PCP - General Family Medicine 08/25/24
--- OUTSIDE RECORDS SUMMARY | 2024-11-13 08:21 | XMS_ITS | Clinical Summary ---
Author Organization [facility] [place] Address [address] [place] [address] Phone Care Team Providers Care Manager Of Training And Development Name Role Phone Devan Mckeon MD Primary Care Provider Allergies Active Allergy Reactions Criticality Noted Date Comments Adhesive Tape-Silicones Itching Low 02/03/2016 Morphine Itching,Swelling High 04/10/2016 Sulfa (Sulfonamide Antibiotics) Swelling Low 0906/2015 Tapentadol Itching,Rash Medium 02/03/2016 Medications lisinopril (PRINIVIL) [...] 1 0 Active L. gasseri-B. 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 2021 Bilateral malignant neoplasm of overlapping sites of breast in female 02/09/2016 Overview (10/19/2016): RIGHT, UOQ Stage: Clinical T1 N0; pT1a N0 Date of diagnosis: 02/03/16 Diagnosis: right 0.1 cm grade I IDC 0/2 LN ER(+) UT(+) HER2 (-) Ki-67 - 10.9% LEFT, UIQ Stage: Clinical T1 N0; pT2 N0 Date of diagnosis: Diagnosis: left 2.2 cm Grade I IDC 0/2 LN ER(+) UT(+) HER2 (-) Ki-67 - 15.8% Oncotype-Dx score: 3 Medical oncologist- Raj Endocrine: 2.5mg Letrozole BREAST CANCER TREATMENT SUMMARY AND SURVIVORSHIP PLAN Patient name: Aline Grant Patient Patient : 1950 CARE TEAM Medical oncologist: Dr Neeraj Anthony Surgeon: Dr Maya Cornejo Primary care physician: Dr Devan Mckeon TOOL HARDENER: Dr Gunjan Rodriguez TREATMENT SUMMARY Diagnosis date: [...] POSITIVE-01/09 Estrogen: POSITIVE-01/09 Progesterone: POSITIVE-01/09 Progesterone: POSITIVE-01/09 Ece9Vit: NEGATIVE Jee2Dmp: NEGATIVE Ki-67: 10.9% Ki-67: 15.8% 02/14/16: MRI [...] other tests as indicated on each visit CATTLE INSPECTOR -Continue your yearly visit. *Physical exam and other tests (Pap test) as indicated on each visit. Possible late and/or meterman affects that someone with this type of [...] also good for overall health. REFERRALS [x] [facility] [] [facility] [] Other (Specify): ADDITIONAL RESOURCES Patients may have many questions and concerns after their cancer treatment ends. A list of local resources as provided below to assist you. [facility] cancer information center: [place] Cancer Society (ACS): www.acs.org National Cancer [place] (NCI): www.cancer.gov [place] Society of clinical oncology (ASCO): www.cancer.net Komen: www.[place] Tourism.org Livestrong: www.Doorman Radiation therapy: www.rtanswers.org Patient signature: Akin Jodee/EDDY/RN signature: Eden Brooke RN BSN Date delivered on: 08/18/2016 Surgeon: Clemente Surgery: 04/10/16 bilateral TM/SLN Medical Oncologist: Chemotherapy: Radiation: none Hormonal therapy: Breast mass, left 02/03/2016 Overview (02/03/2016): For core biopsy Resolved Problems Problem Noted Date Diagnosed Date Resolved Date Abnormal mammogram 01/24/2016 2 Encounters Date Type Department Care Team Description 11/07/2024 Orders Only [facility] Oncology and Hematology [place] [address] [address] Neeraj Justice MD 10/29/2024 11:30 AM CDT Office Visit [facility] Oncology and Hematology [facility] [address] [place] [phone] Neeraj Justice MD Use of aromatase inhibitors; Post-menopausal; Recurrent breast cancer, left (CMS/HCC) 10/24/2024 Orders Only [facility] Oncology and [facility] [address] [place] [phone] Neeraj Justice MD 10/21/2024 External Device Data [facility] ABSTRACTION Provider, Abstract from Last 3 Months Immunizations Immunization Administration [...] Tobacco: Never Tobacco Cessation:Counseling Given: Not Answered Alcohol Use Standard Drinks/Week Comments No 0 [...] Sign Reading Time Taken Comments Blood Pressure 122/63 10/29/2024 11:22 AM CDT Pulse 65 10/29/2024 11:22 AM CDT Temperature 36.6 C (97.8 F) 10/29/2024 11:22 AM CDT Respiratory Rate 15 10/29/2024 11:22 AM CDT Oxygen Saturation 95% 10/29/2024 11:22 AM CDT Inhaled Oxygen Concentration - - Weight 92 kg (202 lb 12.8 oz) 10/29/2024 11:22 A M CDT Height 166.4 cm (5' 5.5) 08/07/2024 1:57 PM CANE FEEDER Body Mass Index 33.23 08/07/2024 1:57 PM CANE FEEDER Plan of Treatment Upcoming Encounters Date Type Department Care Team (Late st Contact Info) Description 05/04/2025 11:30 AM CANE FEEDER Office Visit [facility] Oncology and Hematology - [place] [address] [facility] [address] [place] [address] Neeraj Justice MD [address] [facility] [address] [place] [address] Health Maintenance Due Date Last [...] SCREENING 10/25/2027 3, 10/24/2022, 08/18/2016 COLORECTAL SCREENING 08/19/2034 08/19/2024, 08/19/2024, 08/19/2024, Additional history exists Colorectal Cancer Screening 08/19/2034 INFLUENZA VACCINE Completed 02/12/2024, , 03/20/2022, Additional history exists PNEUMOCOCCAL VACCINE 50+ YEARS Completed 02/12/2024 , 05/31/2020 Procedures Procedure Name Priority Date/Time Associated Diagnosis Comments COMPREHENSIVE METABOLIC PANEL Routine 10/21/2024 1:59 PM CDT CBC WITH DIFFERENTIAL Routine 10/21/2024 1:52 PM CDT CANCER ANTIGEN 15-3 Routine 10/21/2024 1 1:08 AM CDT XR DEXA BONE DENSITY AXIAL 1 OR MORE SITES Routine 10/24/2022 9:59 AM CDT Use of aromatase inhibitors Post-menopausal Screening for osteoporosis from Last 3 Months or Most Recently Relevant to Health Maintenance Results * COMPREHENSIVE METABOLIC PANEL (10/21/2024 1:59 PM CDT) Blood us Neeraj Justice MD CHEMISTRY ORDERABLES Final Resu lt * CBC WITH DIFFERENTIAL (10/21/2024 1:52 PM CDT) Blood us Neeraj Justice MD HEMATOLOGY ORDERABLES Final Res ult * CANCER ANTIGEN 15-3 (10/21/2024 11:08 AM CDT) Blood us Neeraj Justice MD CHEMISTRY ORDERABLES Final Resu lt * XR DEXA BONE DENSITY AXIAL 1 OR MORE SITES (10/24/2022 9:59 AM CDT) Anatomical Region Laterality Modality Computed Radiogr aphy 10/24/2022 10:0 0 AM CDT Impressions 10/24/2022 10:12 AM CDT IMPRESSION: This is a summary page. Please refer to the complete detailed report found in the Imaging Section of the [facility] EMR. Osteopenia. Lumbar Spine: t-Score: -1.3 [...] the lumbar spine and hip(s) using a [place] DEXA scanner for bone mineral density determination [...] the lumbar spine and hip(s) using a LUNAR DEXA scanner for bone mineral density determination [...] found in the Imaging Section of the [facility] EMR. Osteopenia. Lumbar Spine: t-Score: -1.3 [...] Most Recently Relevant to Health Maintenance Insurance Advance Directives For more information, please contact: [phone] * Full Code (Latest Code Status on File) Date Activated Date Inactivated Comments 04/10/2016 1:11 PM 04/11/2016 12:59 PM * Full Code Date Activated Date Inactivated Comments 04/10/2016 7:08 AM 04/10/2016 1:11 PM Care Teams Manager Of Training And Development Relationship Specialty [place] [address] [phone] PCP - General Family Practice 02/23/16
--- OUTSIDE RECORDS SUMMARY | 2024-11-13 08:21 | XMS_ITS | Clinical Summary ---
Author Organization [facility] Address [address] [place] [address] Care Team Providers Care Forest Economics Professor Name Role Phone Hawa Carmichael Edward COLLECTIONS AGENT Primary Care Provider Allergies Active Allergy Reactions [...] 08/05/2024 Assessment & Plan (08/05/2024 1:23 PM SLITTING MACHINE FEEDER): Chronic diarrhea after meals, 2-3 loose to [...] 09/13/2021 Assessment & Plan (08/05/2024 1:23 PM SLITTING MACHINE FEEDER): Chronic GERD, not well-controlled with omeprazole 40 [...] (09/13/2021): Added automatically from request for surgery [id number] Assessment & Plan (08/05/2024 1:20 PM SLITTING MACHINE FEEDER): Has had a cholecystectomy. Patient has had [...] Cornejo Primary care physician: Dr Devan Mckeon BLOCK MACHINE OPERATOR: Dr Gunjan Rodriguez TREATMENT SUMMARY Diagnosis [...] POSITIVE-01/09 Estrogen: POSITIVE-01/09 Progesterone: POSITIVE-01/09 Progesterone: POSITIVE-01/09 Lnn4Ukb: NEGATIVE Tec3Cec: NEGATIVE Ki-67: 10.9% Ki-67: 15.8% 02/14/16: MRI [...] other tests as indicated on each visit AUTOMATIC COIL MACHINE OPERATOR -Continue your yearly visit. *Physical exam and other tests (Pap test) as indicated on each visit. Possible late and/or tank terminal gauger affects that someone with this type of [...] health. REFERRALS [x] [facility] [] [facility] Pastoral Services [facility] at the [facility] [] Other (Specify): ADDITIONAL RESOURCES Patients may have many questions and concerns after their cancer treatment ends. A list of local resources as provided below to assist you. [facility] cancer information center: [place] Cancer Society (ACS): www.acs.org National Cancer [place] (NCI): www.cancer.gov Anguillan Society of clinical oncology (ASCO): www.cancer.net Komen: www.komen.org Livestrong: www.The Campaign SolutiontronCytoPherx Radiation therapy: www.rtanswers.org Patient signature: Akin Jodee/EDDY/KAITLYNN signature: Eden HEMPHILLN Date delivered on: 08/18/2016 Surgeon: Clemente Surgery: 11/7/16 bilateral TM/SLN Medical Oncologist: Chemotherapy: Radiation: none Hormonal therapy: Encounters Date Type Department Care Team Description 11/06/[address] [facility] Gastroenterology at [address] [address] Kavon Lynn MD Gastroesophageal reflux disease without esophagitis 08/20/2024 Results Follow-Up [facility] Gastroenterology at [address] [phone] Kavon Lynn MD Surgical pathology 08/20/2024 Documentation [facility] Gastroenterology at [address] [address] Kavon Lynn MD 08/19/2024 1:45 PM CDT Anesthesia Event [facility] [address] [place] [address] Renee Galvez MD Lee, Walter, MD 08/19/2024 1:30 PM CDT - 08/19/2024 2:00 PM CDT Surgery [facility] [address] [place] [address] Kavon Lynn MD COLON BIOPSY 08/19/2024 12:12 PM CDT - 08/19/2024 3:20 PM CDT Hospital Encounter [facility] [address] [place] [address] Kavon Lynn MD Acute pancreatitis, unspecified complication status, unspecified pancreatitis type; Diarrhea, unspecified type; Gastroesophageal reflux disease without esophagitis Discharge Disposition: Discharge to home or self care 08/15/[address] [facility] Gastroenterology at [address] [address] Kavon Lynn MD Acute pancreatitis, unspecified complication status, unspecified pancreatitis type (Primary Dx); Diarrhea, unspecified type; Gastroesophageal reflux disease without esophagitis 08/14/[address] [facility] Gastroenterology at [address] [phone] Kavon Lynn MD from Last 3 Months Surgical History Surgery [...] Never 09/13/2021 How often do you attend yarsani or religion serv ices? Never 09/13/2021 Do you belong to any clubs o r organizations such as yarsani groups, unions, fraternal or athletic groups, or [...] on file Legal Sex Female 2:51 AM SLITTING MACHINE FEEDER Gender Identity Not on file Sexual Orientation [...] history exists Medical Devices Implanted Type Area Zipper Setter Chainstitch Device Identifier Shelf Expiration Date Model / Serial / Lot Other - See Comments Other - see comments Left: Femur Description:Davide Patella Patella Left: Knee Screw Screw Left: Foot Explanted Type Area Zipper Setter Chainstitch Device Identifier Shelf Expiration Date Model / Serial / Lot [employer] Xavier Flexi-Stent 7fr 3cm Small Pigtail Flexible .035in Stent [id number] - [id number] Implanted:Qty : 1 on 09/12/2021 by Phan Louis MD at [facility] Explanted:Qty : 1 on 09/14/2021 by Phan Louis MD at [facility] Stent N/A: Bile Duct [employer] 01/01/2025 [id number] / / [id number] [employer] Xavier Flexi-Stent 4fr 2cm Small Pigtail Straight Flexible .025 6341 - [id number] Implanted:Qty : 1 on 09/12/2021 by Phan Louis MD at [facility] Explanted:Qty : 1 on 09/14/2021 at [facility] Stent N/A: Pancreas [employer] 04/03/2026 [id number] / / [id number] Wallflex 10mm X 60mm Fully Covered Biliary [id number] - [id number] Implanted:Qty : 1 on 09/12/2021 by Phan Louis MD at [facility] Explanted:Qty : 1 on 09/14/2021 by Phan Louis MD at [facility] N/A: Bile Duct GlucoTec Rosemary 05/16/2023 [id number] / / [id number] Procedures Procedure Name Priority Date/Time Associated Diagnosis [...] Biopsy) 08/19/2024 2:06 PM CDT Narrative PATHOLOGY [facility] - 08/20/2024 6:42 PM CDT [facility] Department of Pathology [address] [place] [address] Note to Patients: This report may contain [...] : 1950 (Age: 74) Gender: F Address: [address] [place] [id number] [facility] #: [id number] Service: Gastro Location: Patient Type: [facility] Taken: 08/19/2024 Received: 08/19/2024 Accessioned: 08/19/2024 [...] cm. Entirely submitted. Labeled F1. Jar [facility]. [facility]/08/19/2024 15:00 SHRUTHI Sesay, PA (ASCP) Microscopic slide review and interpretation for this case was performed at [facility], Department of Surgical Pathology, [address] [facility] [place], [place] [id number], [place] [address] CLIA # [id number] us Kavon Lynn MD LAB PATHOLOGY ORDERABLES Final R esult PATHOLOGY [facility] * EGD (08/19/2024 1:28 PM CDT) Anatomical Region Laterality Modality Other Narrative Procedure Note Kavon Lynn MD - 08/19/2024 1:28 PM CDT [facility] ENDOSCOPY Patient Name: Ingrid Grant Procedure Date: 08/19/2024 1:28 PM Date of : 1950 Admit Type: Outpatient Age: 74 Gender: Female Attending MD: Kavon Lynn M.D. Room: [facility] ENDOSCOPY ROOM 03 Note Status: Finalized [...] On: 08/19/2024 1:28 PM Recognized by the [place] Society for Gastrointestinal Endoscopy for promoting quality in endoscopy us Kavon Lynn MD ENDOSCOPY PROCEDURES Final Resul t * Colonoscopy (08/19/2024 1:27 PM CDT) Anatomical Region Laterality Modality Other Narrative Procedure Note Kavon Lynn MD - 08/19/2024 1:27 PM CDT [facility] GI ENDOSCOPY Patient Name: Ingrid Grant Procedure Date: 08/19/2024 1:27 PM Date of : 1950 Admit Type: Outpatient Age: 74 Gender: Female Attending MD: Kavon Lynn M.D. Room: [facility] ENDOSCOPY ROOM 03 Note Status: Finalized [...] The scope was passed under direct vision.The [id number]-[id number] colonoscope was introduced through theanus and advanced [...] On: 08/19/2024 1:27 PM Recognized by the [place] Society for Gastrointestinal Endoscopy for promoting quality in endoscopy Kavon Lynn MD ENDOSCOPY PROCEDURES Final Resul t * (ABNORMAL) POC Blood Gas and Chemistries, Venous - (08/19/2024 1:14 PM CDT) pH,idania POC 7.53(H) 7.32 - 7.43 pCO2, idania POC 28(L) 40 - 50 mmHg [facility] pO2,idania POC 63 mmHg [facility] Comment: Interpretive Data No reference range established. Current interpretive data was last revised 2020. HCO3, idania (Calc) POC 23 20 - 30 mmol/L [facility] Base excess, idania POC 1 mmol/L [facility] Comment: Interpretive Data No reference range established. Current interpretive data was last revised 2020. Hemoglobin, idania POC 12.6 11.9 - 15.5 g/dL [facility] Hematocrit, idania POC 37.0 35.6 - 45.5 % [facility] Sodium, idania POC 139 135 - 145 mmol/L [facility] Potassium, idania POC 3.8 3.3 - 4.9 mmol/L [facility] Comment: Interpretive Data This method is not able to assess for hemolysis, which may falsely increase potassium concentrations. If further testing is needed to evaluate this result, consider in-laboratory plasma potassium. Current Interpretive Data was last revised on 2022. Glucose, idania POC 99 70 - 199 mg/dL [facility] Ionized Calcium, idania POC 4.70 4.50 - 5.10 mg/dL [facility] Blood 08/19/2024 1:14 PM CDT 08/19/2024 1:14 PM CDT Kavon Lynn MD LAB POCT ORDERABLES - DEVICE Fin al Result [facility] [address] [facility] Department [place] [address] from Last 3 Months Insurance [facility] MEDICARE ADVANTAGE [facility] MEDICARE ADVANTAGE UHC MEDICARE ADVANTAGE Advance Directives For more information, please contact: [phone] * LIMITED - No CPR (Latest Code Status on File) Date Activated Date Inactivated Comments 10/29/2022 3:51 PM 10/31/2022 7:06 PM * Full Code Date Activated Date Inactivated Comments 10/29/2022 2:19 PM 10/29/2022 3:51 PM * Full Code Date Activated Date Inactivated Comments 09/12/2021 7:50 AM 09/15/2021 4:05 PM Care Teams Forest Economics Professor Relationship Specialty Start Date End Date Hawa Carmichael NP [address] [facility] [address] [place] [address] PCP - General Family Medicine 08/25/24
--- OUTSIDE RECORDS SUMMARY | 2024-11-13 08:21 | XMS_ITS | Encounter Summary ---
Author Organization [facility] Address [address] [place] [address] Care Team Providers Care Sales Support Engineer Name Role Phone Devan Mckeon MD Primary Care Provider [phone] Hawa Carmichael APRN-[facility] Primary Care Prov ider Reason for Referral * Consultation (Routine) - Authorized Specialty Diagnoses / Procedures Referred By Contac t Referred To Contact Neurology Diagnoses Vertebral artery stenosis, unspecified laterality Nesha Monsalve MD [address] [place] [address] Phone: tel: fax: López Ryan MD [address] [place] [address] [place] [address] Phone: tel: fax: Referral ID Status Reason Start Date Expiration Date Visits Requested Visits Authorized [id number] Authorized Specialty Services Required 4 04/22/2025 6 6 IFFS DETECTIVE Encounter Details Date Type Department Care Team (Late st Contact Info) Description 04/22/2024 Transcribe Orders [facility] - Centralized Scheduling [address] [place] [phone] Nesha Monsalve MD [address] [place] [address] [phone] Vertebral artery stenosis, unspecified laterality Social History [...] Patient Health Questionnaire-2 Score 0 08/13/2023 [facility] of Occupat ional Health - Occupational Stress [...] place to sleep or slept in a chcf (including now)? No 06/25/2023 Education Answer Date Recorded What is the highest level of school you have completed or the highest degree you have received? Associate degree: academic program 06/25/2023 Comments Unknown Sex and Gender Information Value Date Recorded Sex Assigned at Not on file Legal Sex Female 6:00 AM SHERIFFS DETECTIVE Gender Identity Not on file Sexual Orientation [...] Primary documented in this encounter Care Teams Sales Support Engineer Relationship Specialty Start Date End Date Devan Mckeon MD [address] [address] PCP - General Family Medicine 06/25/23 07/30/24 Hawa Carmichael, RAMPMAN-RN FLOAT [address] [place] [address] PCP - General Nurse Practitioner 07/31/24 documented as of this encounter
--- OUTSIDE RECORDS SUMMARY | 2024-11-13 08:21 | XMS_ITS ---
Author Organization [facility] Address [address] [place] [address] Care Team Providers Care Print Production Coordinator Name Role Phone JanyHawa Edward ACCESS LEAD Primary Care Provider Active Problems Problem Noted Date Diagnosed Date Gastroesophageal reflux disease without esophagi tis 08/15/2024 Diarrhea 08/05/2024 Assessment & Plan (08/05/2024 1:23 PM SPORTS BOOKMAKER): Chronic diarrhea after meals, 2-3 loose to [...] 09/13/2021 Assessment & Plan (08/05/2024 1:23 PM SPORTS BOOKMAKER): Chronic GERD, not well-controlled with omeprazole 40 [...] (09/13/2021): Added automatically from request for surgery [id number] Assessment & Plan (08/05/2024 1:20 PM SPORTS BOOKMAKER): Has had a cholecystectomy. Patient has had [...] cm grade I IDC 0/2 LN ER(+) MD(+) HER2 (-) Ki-67 - 10.9% LEFT, UIQ Stage: Clinical T1 N0; pT2 N0 Date of diagnosis: Diagnosis: left 2.2 cm Grade I IDC 0/2 LN ER(+) MD(+) HER2 (-) Ki-67 - 15.8% Oncotype-Dx score: 3 Medical oncologist- Raj Endocrine: 2.5mg Letrozole BREAST CANCER TREATMENT SUMMARY AND SURVIVORSHIP PLAN Patient name: Aline Grant Patient Patient : 1950 CARE TEAM Medical oncologist: Dr Neeraj Anthony Surgeon: Dr Maya Cornejo Primary care physician: Dr Devan Mckeon STRADDLE CARRIER OPERATOR: Dr Gunjan Rodriguez TREATMENT SUMMARY Diagnosis [...] POSITIVE-8 Estrogen: POSITIVE-01/09 Progesterone: POSITIVE-01/09 Progesterone: POSITIVE-01/09 Csg6Guu: NEGATIVE Dcv1Xzp: NEGATIVE Ki-67: 10.9% Ki-67: 15.8% 02/14/16: MRI [...] other tests as indicated on each visit ADVANCED PRACTICE PROVIDER -Continue your yearly visit. *Physical exam and other tests (Pap test) as indicated on each visit. Possible late and/or detention affects that someone with this type of [...] [] [facility] at the [facility] [] Other (Specify): ADDITIONAL RESOURCES Patients may have many questions and concerns after their cancer treatment ends. A list of local resources as provided below to assist you. [facility] cancer information [place]: [place] Cancer Society (ACS): www.acs.org National Cancer [place] (NCI): www.cancer.gov Somali Society of clinical oncology (ASCO): www.cancer.net Komen: www.St[employer].org Livestrong: Active Storage.Cloudfind Radiation therapy: www.rtanswers.org Patient signature: Akin M.DLokesh/ACCESS LEAD/RN signature: Eden Brooke RN BSN Date delivered [...]
--- OUTSIDE RECORDS SUMMARY | 2024-11-13 08:21 | XMS_ITS ---
Author Organization [facility] Address [address] [place] [address] Phone Care Team Providers Care Plate Stacker Name Role Phone Devan Mckeon MD Primary Care Provider [phone] Active Problems Patient Care Coordination No te Formatting of this note migh t be different from the original. 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 2021 Bilateral malignant neoplasm of overlapping sites of breast in female 02/09/2016 Overview (10/19/2016): RIGHT, UOQ Stage: Clinical T1 N0; pT1a N0 Date of diagnosis: 02/03/16 Diagnosis: right 0.1 cm grade I IDC 0/2 LN ER(+) NJ(+) HER2 (-) Ki-67 - 10.9% LEFT, UIQ Stage: Clinical T1 N0; pT2 N0 Date of diagnosis: Diagnosis: left 2.2 cm Grade I IDC 0/2 LN ER(+) NJ(+) HER2 (-) Ki-67 - 15.8% Oncotype-Dx score: 3 Medical oncologist- Raj Endocrine: 2.5mg Letrozole BREAST CANCER TREATMENT SUMMARY AND SURVIVORSHIP PLAN Patient name: Aline Grant Patient Patient : 1950 CARE TEAM Medical oncologist: Dr Neeraj Anthony Surgeon: Dr Maya Cornejo Primary care physician: Dr Devan Mckeon BAGGING MACHINE OPERATOR: Dr Gunjan Rodriguez TREATMENT SUMMARY [...] POSITIVE-01/09 Estrogen: POSITIVE-01/09 Progesterone: POSITIVE-01/09 Progesterone: POSITIVE-01/09 Ltq9Ynr: NEGATIVE Umh1Xcx: NEGATIVE Ki-67: 10.9% Ki-67: 15.8% 02/14/16: MRI [...] tests as indicated on each visit AUTOMATIC EMBROIDERY MACHINE TENDER -Continue your yearly visit. *Physical exam and other tests (Pap test) as indicated on each visit. Possible late and/or terminal manager affects that someone with this type of [...] also good for overall health. REFERRALS [x] [facility] Integrative Therapy [] [facility]oozeyoral Services [facility] at the [facility] [] Other (Specify): ADDITIONAL RESOURCES Patients may have many questions and concerns after their cancer treatment ends. A list of local resources as provided below to assist you. [facility] cancer information [place]: Ethiopian Cancer Society (ACS): www.acs.org National Cancer [place] (NCI): www.cancer.gov Ethiopian Society of clinical oncology (ASCO): www.cancer.net Komen: www.Gencia.Sojeanstrong: Personal MedSystems.NewGoTos Radiation therapy: www.rtanswers.org Patient signature: Aline_Falbe M.D./TRUCK ASSEMBLER/RN signature: Eden Brooke RN BSN Date delivered [...]
--- OUTSIDE RECORDS SUMMARY | 2024-11-13 08:21 | XMS_ITS | Clinical Summary ---
Author Organization [facility] Address [address] [place] [address] Care Team Providers Care Glass Toughening Operator Name Role Phone Hawa Carmichael OPTICS TEST TECHNICIAN-WINERY CELLAR HAND Primary Care Prov ider Source Comments [facility],non-owned Affiliates and Associated Physician Practices is amultiple site organization consisting of ambulatory clinics and hospital sitesin [place], [place], [place]. This disclosure is being madepursuant to the Care Everywhere program and may not contain all informatio navailable regarding this patient. Last updated 18.[facility] Allergies Active Allergy Reactions Criticality Noted Date [...] fluticasone propionate (Flonase) 50 MCG/ACT nasal spray [place] 2 (two) sprays into the nose once [...] Type Department Care Team Description 10/03/2024 Telephone [facility] [address] [place] [address] Oz Shepherd MD Results 09/30/2024 Telephone [facility] - Neurology [address] [place] [phone] Barrett Murphy MD Results 09/18/2024 Telephone [facility] - Neurology [address] [place] [phone] Barrett Murphy MD General 08/13/2024 10:00 AM CDT Office Visit [facility] [address] [place] [phone] Nesha Monsalve MD Linares, Guillermo, MD Vertebral [...] Recorded Patient Health Questionnaire-2 Score 0 08/13/2023 [facility] [place] of Occupat ional Health - Occupational Stress [...] place to sleep or slept in a fpc (including now)? No 06/25/2023 Education Answer Date Recorded What is the highest level of school you have completed or the highest degree you have received? Associate degree: academic program 06/25/2023 Comments Unknown Sex and Gender Information Value Date Recorded Sex Assigned at Not on file Legal Sex Female 6:00 AM TECHNICAL SPEC Gender Identity Not on file Sexual Orientation Not on file Last Filed Vital Signs Vital Sign Reading Time Taken Comments Blood Pressure 122/75 08/13/2024 9:43 AM CDT Pulse 65 08/13/2024 9:43 AM CDT Temperature 36.9 C (98.4 F) 07/02/2023 4:02 PM TECHNICAL SPEC Respiratory Rate 14 08/13/2024 9:43 AM CDT Oxygen Saturation 98% 07/02/2023 4:02 PM TECHNICAL SPEC Inhaled Oxygen Concentration - - Weight 93 kg (205 lb) 08/13/2024 9:43 AM CDT Height 166.4 cm (5' 5.5) 08/13/2024 9:43 AM CDT Body Mass Index 33.59 08/13/2024 9:43 AM CDT Plan of Treatment Health Maintenance Due Date Last Done Comments COLOGUARD (AGES 45-75) - COLON CA SCREENING 1950 CT COLONOGRAPHY - COLON CA SCREENING [...] yrs (1 - 1-dose 75+ series) 2026 COLON MONITORING 11/11/2030 11/11/2020 COLONOSCOPY - COLON CA SCREENING 11/11/2030 11/11/2020 Colorectal Cancer Screening 11/11/2030 BONE DENSITY TESTING Completed 10/24/2022, 08/19/19 17 INFLUENZA VACCINE Completed 02/12/2024, , 03/20/2022, Additional [...] this topic Medical Devices Implanted Type Area Head Chef Device Identifier Shelf Expiration Date Model / Serial / Lot Femoral Nail Retrograde System Implanted:Qty: 1 on 06/28/2023 by Amalia Mendez MD at [facility] [place] Left: Knee [employer] 07/04/2032 [id number] / / [id number] Advanced Locking Screw Imn Screws System Implanted:Qty: 1 on 06/28/2023 by Amalia Mendez MD at [facility] [place] Left: Knee [employer] 07/04/2029 [id number] / / [id number] Advanced Locking Screw Imn Screws System Implanted:Qty: 1 on 06/28/2023 by Amalia Mendez MD at [facility] [place] Left: Knee [employer] 02/01/2033 [id number] / / [id number] Advanced Locking Screw Imn Screws System Implanted:Qty: 1 on 06/28/2023 by Amalia Mendez MD at [facility] [place] Left: Knee [employer] 03/03/2029 [id number] / / [id number] Advanced Locking Screw Imn Locking System Implanted:Qty: 1 on 06/28/2023 by Amalia Mendez MD at [facility] [place] Left: Knee [employer] 02/01/2033 [id number] / / [id number] Locking Screw Imn Screws System Implanted:Qty: 1 on 06/28/2023 by Amalia Mendez MD at [facility] [place] Left: Knee [employer] 12/02/2031 [id number] / / [id number] Locking Screw Imn Screws System Implanted:Qty: 1 on 06/28/2023 by Amalia Mendez MD at [facility] [place] Left: Knee [employer] 09/01/2032 [id number] / / [id number] Insurance [employer] MANAGED MEDICARE ADV Advance Directives * Full Code (Latest Code Status on File) Date Activated Date Inactivated Comments 06/25/2023 8:31 PM 07/02/2023 7:09 PM * Full Code Date Activated Date Inactivated Comments 06/25/2023 3:26 PM 06/25/2023 8:31 PM Care Teams Glass Toughening Operator Relationship Specialty Start Date End Date Hawa Carmichael, OPTICS TEST TECHNICIAN-WINERY CELLAR HAND [address] [place] [address] PCP - General Nurse Practitioner 07/31/24
== END 2024-11-13 08:15 | disposition home or self-care (01) ==
LOC: ANHIMG 08:16
PROVIDERS: Visit Provider Internal Medicine Hematology & Oncology
DX: M85.80 Other specified disorders of bone density and structure, unspecified site (principal); Z78.0 Asymptomatic menopausal state
CPT/HCPCS: 77080